=== PATIENT | male | born 1980 | race Caucasian/White ===

== ENCOUNTER → 2016-08-02 | Outpatient (CLI) | payer BC ==
[~2016-08-02] MED LIST: AZIT250T PO; INSPMPHMLG; OSEL75CA12 PO
[2016-08-02 09:44] LABS: BLOOD UREA NITROGEN 15 mg/dl (7-18); BUN/CREATININE RATIO 12.4 (10-20); CALCIUM 9.7 mg/dl (8.5-10.1); CARBON DIOXIDE 29 mmol/L (21-32); CHLORIDE 100 mmol/L (98-107); GLUCOSE 152 mg/dl (70-99); POTASSIUM 4.6 mmol/L (3.5-5.1); SODIUM 139 mmol/L (136-145)
[2016-08-02 09:47] LABS: CHOLESTEROL 165 mg/dl (0-200); CHOLESTEROL/HDL RATIO 2.5; HDL CHOLESTEROL 67 mg/dl; LDL CHOLESTEROL CALCULATED 77 mg/dl; TRIGLYCERIDES 107 mg/dl (0-150); VERY LOW DENSITY LIPOPROT CALC 21 mg/dl
[2016-08-02 09:58] LABS: ESTIMATED AVERAGE GLUCOSE 140 mg/dl; HA1C FLAG Normal (Normal)
[2016-08-02 10:17] LABS: RATIO 9.5 mcg/mg (0-30.0)
== END | disposition home or self-care (01) ==
LOC: C.LAB 07:07
PROVIDERS: ATTEND Internal Medicine Endocrinology, Diabetes & Metabolism
DX: E10.42 Type 1 diabetes mellitus with diabetic polyneuropathy (principal)

== ENCOUNTER → 2016-11-29 | Outpatient (CLI) | payer BC ==
[2016-11-29 09:52] LABS: BLOOD UREA NITROGEN 17 mg/dl (7-18); BUN/CREATININE RATIO 17.3 (10-20); CARBON DIOXIDE 29 mmol/L (21-32); CHLORIDE 105 mmol/L (98-107); GLUCOSE 130 mg/dl (70-99); POTASSIUM 4.4 mmol/L (3.5-5.1); SODIUM 141 mmol/L (136-145)
[2016-11-29 09:59] LABS: CALCIUM 9.1 mg/dl (8.5-10.1)
[2016-11-29 10:27] LABS: ESTIMATED AVERAGE GLUCOSE 148 mg/dl; HA1C FLAG Normal (Normal)
== END | disposition home or self-care (01) ==
LOC: C.LAB 06:56
PROVIDERS: ATTEND Physician Assistant
DX: E10.22 Type 1 diabetes mellitus with diabetic chronic kidney disease (principal); N18.2 Chronic kidney disease, stage 2 (mild); E10.42 Type 1 diabetes mellitus with diabetic polyneuropathy; Z96.41 Presence of insulin pump (external) (internal); I10 Essential (primary) hypertension

== ENCOUNTER → 2017-04-13 | Outpatient (CLI) | payer BC ==
[2017-04-13 10:02] LABS: BLOOD UREA NITROGEN 18 mg/dl (7-18); BUN/CREATININE RATIO 16.5 (10-20); CALCIUM 9.8 mg/dl (8.5-10.1); CARBON DIOXIDE 26 mmol/L (21-32); CHLORIDE 103 mmol/L (98-107); GLUCOSE 129 mg/dl (70-99); POTASSIUM 4.4 mmol/L (3.5-5.1); SODIUM 136 mmol/L (136-145)
== END | disposition home or self-care (01) ==
LOC: C.LAB 07:03
PROVIDERS: ATTEND Physician Assistant
DX: E10.42 Type 1 diabetes mellitus with diabetic polyneuropathy (principal)

== ENCOUNTER → 2017-08-29 | Outpatient (CLI) | payer OTHER ==
[2017-08-29 09:53] LABS: BLOOD UREA NITROGEN 22 mg/dl (7-18); CALCIUM 9.8 mg/dl (8.5-10.1); CARBON DIOXIDE 31 mmol/L (21-32); CREATININE 0.99 mg/dl (0.60-1.40); GLUCOSE 145 mg/dl (70-99); POTASSIUM 4.4 mmol/L (3.5-5.1); SODIUM 136 mmol/L (136-145)
[2017-08-29 09:57] LABS: HEMOGLOBIN A1C 6.7 % (4.5-5.6)
== END | disposition home or self-care (01) ==
LOC: C.LAB 07:08
PROVIDERS: ATTEND Internal Medicine Endocrinology, Diabetes & Metabolism
DX: E10.42 Type 1 diabetes mellitus with diabetic polyneuropathy (principal)

== ENCOUNTER → 2017-11-16 | Outpatient (CLI) | payer OTHER ==
[2017-11-16 09:47] LABS: BLOOD UREA NITROGEN 19 mg/dl (7-18); CALCIUM 9.1 mg/dl (8.5-10.1); CARBON DIOXIDE 26 mmol/L (21-32); CREATININE 1.15 mg/dl (0.60-1.40); GLUCOSE 167 mg/dl (70-99); POTASSIUM 4.2 mmol/L (3.5-5.1); SODIUM 138 mmol/L (136-145)
[2017-11-16 09:50] LABS: CHOLESTEROL 160 mg/dl (0-200); LDL CHOLESTEROL CALCULATED 77 mg/dl
[2017-11-16 10:01] LABS: HEMOGLOBIN A1C 6.7 % (4.5-5.6)
== END | disposition home or self-care (01) ==
LOC: C.LAB 07:08
PROVIDERS: ATTEND Physician Assistant
DX: E10.3299 Type 1 diabetes mellitus with mild nonproliferative diabetic retinopathy without macular edema, unspecified eye (principal); Z96.41 Presence of insulin pump (external) (internal); I10 Essential (primary) hypertension

== ENCOUNTER 2023-02-07 01:35 | Inpatient (IN) ==
[2023-02-07] MEDS ORDERED: ONDANSETRON INJ 2 MG/ML 2 ML VIAL IV STA (01:51)
[2023-02-07] MEDS ORDERED: KETOROLAC TROMETHAMINE 15 MG/ML VIAL IV STA (01:51)
[2023-02-07] MEDS ORDERED: SODIUM CHLORIDE 0.9% 1000ML 1,000 ML IV STA (01:51)
--- NOTE | 2023-02-07 01:57 | Emergency Department Note ---
History of Present Illness General Chief complaint: Kidney Stone Stated complaint: KIDNEY STONE Time Seen by Provider: 02/07/23 01:44 History of Present Illness Maximum Pain Intensity: 6 This 42-year-old male presents the ER complaining of right flank pain with a history of kidney stones. He has not required lithotripsy or stent placement in the past. Blood sugars have been stable. Patient denies chest pain, dyspnea, vomiting, diarrhea, trauma to the area. Home Medications Medication Instructions Recorded Confirmed Type aspirin 81 mg tablet,delayed 81 mg PO QPM 09/04/18 02/07/23 History release lisinopril 40 mg tablet 40 mg PO QPM 01/14/19 02/07/23 History insulin lispro 100 unit/mL See Rx Instructions .Route .COMPLEX 02/07/23 02/07/23 History subcutaneous solution (Humalog U-100 Insulin) latanoprost 0.005 % eye drops 1 drp ophthalmic (eye) UD 02/07/23 02/07/23 History Allergies Allergy/AdvReac Type Severity Reaction Status Date / Time No Known Allergies Allergy Verified 12/01/22 10:19 No Known Drug Allergies Allergy Uncoded 12/01/22 10:19 Past Med/Surg History Medical History Cataract, bilateral Diabetes mellitus type 1 INSULIN PUMP Diabetic retinopathy Hypertension Situational anxiety Surgical History History of carpal tunnel surgery of right wrist History of cataract surgery RT History of detached retina repair LEFT EYE History of eye surgery SCAR TISSURE REMOVED FROM RIGHT EYE Family History Father Prostate cancer Mother Vitamin B 12 deficiency Thyroid disorder Social History Smoking Status: Never smoker Second Hand Exposure: No; Do You Dip or Chew Tobacco: No; Hx Alcohol Use: No Hx Substance Use: Yes Preferred Language: Hungarian Communication Ability: Effective 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 Beliefs That Will Affect Care: None marital status: Current Living Situation: Family Feels Safe at Home: Yes Assistive Devices: Glasses Review of Systems A total of 10 systems reviewed and were otherwise negative Physical Exam Vital Signs Vital Signs - 24 hr 02/07/23 01:36 02/07/23 02:02 02/07/23 02:10 Temperature 36.9 C Temperature Source Oral Pulse Rate 86 79 Pulse Rate [Finger] 78 Pulse Rhythm Regular Pulse Rhythm [Finger] Regular Pulse Strength Normal Pulse Strength [Finger] Normal Respiratory Rate 18 18 Respiratory Effort / Characteristics Non-Labored Spontaneous Non-Labored Spontaneous Respiratory Depth Normal Normal Respiratory Pattern Regular Regular Blood Pressure 149/95 H Blood Pressure [Left Arm] 166/90 H Blood Pressure Mean 113 Blood Pressure Mean [Left Arm] 115 Blood Pressure Position Sitting Pulse Oximetry 97 96 Oxygen Delivery Method Room Air Room Air Sepsis Recent Fever Within 48 Hours No Sepsis New/Unexplained Change in Mental Status No Sepsis Action Taken by Nursing No Action Required 02/07/23 02:10 Temperature Temperature Source Pulse Rate Pulse Rate [Finger] Pulse Rhythm Pulse Rhythm [Finger] Pulse Strength Pulse Strength [Finger] Respiratory Rate Respiratory Effort / Characteristics Respiratory Depth Respiratory Pattern Blood Pressure Blood Pressure [Left Arm] Blood Pressure Mean Blood Pressure Mean [Left Arm] Blood Pressure Position Pulse Oximetry Oxygen Delivery Method Room Air Sepsis Recent Fever Within 48 Hours Sepsis New/Unexplained Change in Mental Status Sepsis Action Taken by Nursing VITALS: Vitals are noted on the nurse's note and reviewed by myself. Vital signs stable. GENERAL: Pleasant patient, in no acute distress, nondiaphoretic, well-developed well-nourished. SKIN: The skin was without rashes, erythema, edema, or bruising. There is no tenting of the skin. Capillary reflex less than 2 seconds. HEAD: Normocephalic atraumatic. EARS: External auditory canals clear, EYES: Pupils equal round and reactive to light and accommodation. Conjunctivae without injection, sclerae without icterus. Extraocular movements intact. NOSE: Patent, turbinates without inflammation or discharge. MOUTH: Mucous membranes moist. Pharynx without erythema or exudate. Uvula midline. Airway patent. Tongue does not deviate. NECK: Supple without nuchal rigidity. No lymphadenopathy. No thyromegaly. Cervical spine is nontender. No JVD. HEART: Regular rate and rhythm LUNGS: Clear to auscultation bilaterally without wheezes, rales or rhonchi. No retractions or accessory muscle use. ABDOMEN: Positive bowel sounds x 4. Normal tympanic percussion. Soft, nontender, without masses or organomegaly. Blanco sign negative. No guarding or rebound tenderness. No CVA tenderness MUSCULOSKELETAL: No muscle atrophy, erythema, or edema noted. NEURO: Patient was alert and oriented to person place and time. Normal sensation to light and sharp touch. No focal neurological deficits. Course Administered Medications Morphine Sulfate (Morphine Sulfate 4 Mg/Ml 1 Ml Carp\Vial) 4 mg IV Q15M PRN PRN Reason: Pain Stop: 02/21/23 01:50 Last Admin: 02/07/23 04:25 Dose: 4 mg Documented By: Admin: 02/07/23 02:50 Dose: 4 mg Documented By: Admin: 02/07/23 02:12 Dose: 4 mg Documented By: MACKENZIE Discontinued Medications Sodium Chloride (Nss 1000ml) 1,000 mls @ 999 mls/hr IV .Q1H1M STA Stop: 02/07/23 02:51 Last Admin: 02/07/23 02:12 Dose: 999 mls/hr Documented By: MACKENZIE Ketorolac Tromethamine (Ketorolac Tromethamine 15 Mg/Ml Vial) 10 mg IV NOW STA Stop: 02/07/23 01:52 Last Admin: 02/07/23 02:13 Dose: 10 mg Documented By: MACKENZIE Ondansetron HCl (Ondansetron Inj 2 Mg/Ml 2 Ml Vial) 4 mg IV NOW STA Stop: 02/07/23 01:52 Last Admin: 02/07/23 02:12 Dose: 4 mg Documented By: MACKENZIE Tamsulosin HCl (Tamsulosin Hcl 0.4 Mg Cap) 0.4 mg PO NOW ONE Stop: 02/07/23 02:33 Last Admin: 02/07/23 02:45 Dose: 0.4 mg Documented By: MACKENZIE Medical Decision Making Medical Records Attestation: I reviewed the patient's medical records. Home Medications Current Medication List: was personally reviewed by me Laboratory Data Attestation: I reviewed the patient's lab results. 02/07/23 02:14 02/07/23 02:14 Lab Results 02/07/23 02/07/23 02/07/23 Range/Units 02:14 02:14 02:14 WBC 5.59 (4.8-10.8) K/ul RBC 4.53 L (4.70-6.10) M/uL Hgb 14.2 (14.0-18.0) g/dl Hct 40.2 L (42.0-52.0) % MCV 88.7 (80.0-100.0) fL MCH 31.3 (25.0-34.0) pg MCHC 35.3 (32.0-36.0) g/dL RDW Std Deviation 40.7 (36.4-46.3) fL RDW Coeff of Les 12.5 (11.5-14.5) % Plt Count 168 (130-400) K/uL MPV 12.6 H (9.4-12.4) fL Immature Gran % (Auto) 0.2 % Neut % (Auto) 60.8 % Lymph % (Auto) 22.7 % [place] % (Auto) 13.1 % Eos % (Auto) 2.5 % Baso % (Auto) 0.7 % Neut # (Auto) 3.40 (1.40-6.50) K/uL Lymph # (Auto) 1.27 (1.2-3.4) K/uL [place] # (Auto) 0.73 H (0.11-0.59) K/uL Eos # (Auto) 0.14 (0-0.50) K/uL Baso # (Auto) 0.04 (0-0.2) K/uL Immature Gran # (Auto) 0.01 (0.01-0.20) K/uL Sodium 138 (136-145) mmol/L Potassium 4.0 (3.5-5.1) mmol/L Chloride 106 (98-107) mmol/L Carbon Dioxide 25 (21-32) mmol/L Anion Gap 7 (3-11) BUN 14 (6-23) mg/dl Creatinine 1.46 H (0.6-1.4) mg/dl Est Cr Clr Drug Dosing 77.1 ml/min Est GFR ( Amer) 67.8 ml/min Est GFR (Non-Af Amer) 58.5 ml/min BUN/Creatinine Ratio 9.6 L (10-20) Glucose 213 H (70-99(Fasting)) mg/dl Calcium 9.2 (8.6-10.3) mg/dl Total Bilirubin 0.6 (0.2-1.0) mg/dl AST 14 (13-39) U/L ALT 8 (7-52) U/L Alkaline Phosphatase 79 (34-104) U/L Total Protein 6.8 (6.0-8.3) gm/dl Albumin 4.1 (3.4-5.0) gm/dl Globulin 2.7 (2.5-4.0) gm/dl Albumin/Globulin Ratio 1.5 (0.9-2) Lipase 6 L (11-82) U/L Urine Color Yellow Urine Appearance Clear (Clear) Urine pH 5.5 (4.5-7.5) Ur Specific [place] 1.023 (1.000-1.030) Urine Protein Negative (Negative) Urine Glucose (UA) 2+ H (Negative) Urine Ketones Trace H (Negative) Urine Blood 3+ H (Negative) Urine Nitrite Negative (Negative) Urine Bilirubin Negative (Negative) Urine Urobilinogen Negative (Negative) Ur Leukocyte Esterase Negative (Negative) Urine WBC (Auto) 1-5 (0-5) /hpf Urine RBC (Auto) >30 H (0-4) /hpf U Hyaline Cast (Auto) 5-10 H (0-5) /lpf U Epithel Cells (Auto) 5-10 H (0-5) /lpf Urine Bacteria (Auto) Negative (Negative) Imaging Data Attestation: I personally reviewed and interpreted this imaging study as follows: Radiologist's Impression: Abdomen/Pelvis CT 02/07/23 01:51 Exam(s): CT ABDOMEN + PELVIS Without Contrast EXAM: CT Abdomen and Pelvis Without Intravenous Contrast CLINICAL HISTORY: Reason for exam: right flank pain. TECHNIQUE: Axial computed tomography images of the abdomen and pelvis without intravenous contrast. CTDI is 28.14 mGy and DLP is 1591.29 mGy-cm. Automated exposure control was utilized for the study. A dose lowering technique was utilized adhering to the principles of ALARA. COMPARISON: 01/14/2019. FINDINGS: Lung bases: Mild bilateral lower lobe atelectasis. Heart: Unremarkable. No significant pericardial effusion. Normal cardiac size. ABDOMEN: Liver: Unremarkable. Gallbladder and bile ducts: Slightly over distended gallbladder otherwise unremarkable gallbladder and biliary system. No calcified stones. No ductal dilation. Pancreas: Unremarkable. No ductal dilation. Spleen: Unremarkable. No splenomegaly. Adrenals: Unremarkable. No mass. Kidneys and ureters: Tiny stones in the lower pole of the right kidney measuring 2.3 mm. Mild to moderate right-sided hydronephrosis and hydroureter due to a distal right ureteral stone measuring 6.7 mm. This is seen approximately 4-5 cm above the UV junction. Unremarkable left kidney with no hydronephrosis and intrarenal stones. Stomach and bowel: Abundant fecal debris within the colon which may indicate mild constipation. No obstruction. No mucosal thickening. PELVIS: Appendix: No findings to suggest acute appendicitis. Bladder: Urinary bladder is incompletely distended, otherwise unremarkable. No stones. Reproductive: Unremarkable as visualized. ABDOMEN and PELVIS: Intraperitoneal space: Unremarkable. No free air. No significant fluid collection. Bones/joints: No acute fracture. No dislocation. Soft tissues: Unremarkable. Vasculature: Unremarkable. No abdominal aortic aneurysm. Lymph nodes: Unremarkable. No enlarged lymph nodes. IMPRESSION: 1. Mild to moderate right-sided hydronephrosis due to a distal right ureteral stone measuring 6.7 mm. 2.3 mm stone within the lower pole of the right kidney. Remainder of abdominal viscera unremarkable. 2. Possible constipation. No bowel obstruction or focal inflammatory process throughout the gastrointestinal tract. Electronically signed by: Dayanna Estrada MD 02/07/23 04:34 AM [facility] Narrative Prior records/ancillary studies reviewed. Triage Nursing notes reviewed. Additional history obtained from the family. The patient's history was concerning for flank pain. Differential diagnosis: Etiologies such as renal colic, appendicitis, diverticulitis, mesenteric ischemia, aortic pathology, infections, inflammatory bowel disease, PUD, biliary pathology, UTI, as well as others were entertained. Physical examination findings: As above. ER treatment provided: Morphine Toradol Zofran IV fluids were ordered On reassessment the patient felt better. Diagnostic interpretation by me: The labs Independently Interpreted by myself revealed no worrisome leukocytosis. Urinalysis revealed There was no sign of UTI. Imaging studies: CT of the abdomen pelvis concerning for right ureteral stone with hydronephrosis per my independent interpretation. Radiology report was reviewed as above. Consultation: A consultation was placed with the hospitalist. The case was discussed and diagnostics were reviewed. The patient was evaluated in the ER for further treatment. It appears that the patient has isolated renal colic from a right sided stone. patient received multiple rounds of pain meds. He was still moderate amount of pain. He was reassessed multiple times. Labs and diagnostics were independent of the by myself. Medicine is consulted and the case is discussed. He will be admitted to the medical team for further evaluation and treatment. No signs of UTI. Afebrile and nontoxic. By the evaluation outlined above emergent etiologies such as appendicitis, diverticulitis, mesenteric ischemia, aortic pathology, infections, inflammatory bowel disease, PUD, biliary pathology, UTI, as well as others were deemed relati vely unlikely. The pt informed about the findings as listed above. All questions were answered and pleased with the treatment. The chart was completed utilizing [email or web address] Speech voice recognition software. Grammatical errors, random word insertions, pronoun errors, and incomplete sentences are an occassional consequence of this system due to software limitations, ambient noise, and hardware issues. Any formal questions or concerns about the content, text, or information contained within the body of this dictation should be directly addressed to the physician regulatory assistant for clarification. Impression & Plan Renal colic on right side, Ureterolithiasis Discharge Plan Visit Data Chief Complaint: Kidney Stone Stated Complaint: KIDNEY STONE ED Provider: Mary Lucero ED Midlevel Provider: Vani Marcial Discharge Problem: Renal colic on right side, Ureterolithiasis Patient Disposition: Being Evaluated by Hospitalist Condition: Good Forms Stand Alone Forms: My [employer] Prescriptions Prescriptions: No Action lisinopril 40 mg tablet 40 mg PO QPM aspirin 81 mg Tablet,Delayed Release (Dr/Ec) 81 mg PO QPM insulin lispro [Humalog U-100 Insulin] 100 unit/mL solution See Rx Instructions .ROUTE .COMPLEX Rx Instructions: up to 100 units daily via insulin pump latanoprost 0.005 % drops 1 drp ophthalmic (eye) UD Referrals Referrals: Olivia Connor CRNP [Primary Care Provider] -
[2023-02-07] MEDS: MoRPHine SULFATE 4 MG/ML 1 ML CARP\\VIAL IV PRN ×3 (02:12→04:25)
[2023-02-07 02:27] LABS: Appearance Urine Clear (Clear); Bacteria Urine Automated Negative (Negative); Bilirubin Urine Negative (Negative); Blood Urine 3+ (Negative); Color Urine Yellow; Glucose Urine UA 2+ (Negative); Ketones Urine Trace (Negative); Leukocyte Esterase Urine Negative (Negative); Nitrite Urine Negative (Negative); Protein Urine Negative (Negative); RBC Urine Automated >30 /hpf (0-4); Specific Gravity Urine 1.023 (1.000-1.030); Urobilinogen Urine Negative (Negative); pH Urine 5.5 (4.5-7.5)
[2023-02-07] MEDS ORDERED: TAMSULOSIN HCL 0.4 MG CAP PO ONE (02:32)
[2023-02-07 02:35] LABS: Basophils # (auto) 0.04 K/uL (0-0.2); Basophils % (auto) 0.7 %; Eosinophils # (auto) 0.14 K/uL (0-0.50); Eosinophils % (auto) 2.5 %; Hematocrit (blood only) 40.2 % (42.0-52.0); Hemoglobin 14.2 g/dl (14.0-18.0); Immature Granulocytes # (auto) 0.01 K/uL (0.01-0.20); Immature Granulocytes % (auto) 0.2 %; Lymphocytes # (auto) 1.27 K/uL (1.2-3.4); Lymphocytes % (auto) 22.7 %; Mean Corpuscular Hemoglobin 31.3 pg (25.0-34.0); Mean Corpuscular Hgb Conc 35.3 g/dL (32.0-36.0); Mean Corpuscular Volume 88.7 fL (80.0-100.0); Mean Platelet Volume 12.6 fL (9.4-12.4); Monocytes # (auto) 0.73 K/uL (0.11-0.59); Monocytes % (auto) 13.1 %; Neutrophils % (auto) 60.8 %; Platelet Count 168 K/uL (130-400); RDW Coefficient of Variation 12.5 % (11.5-14.5); RDW Standard Deviation 40.7 fL (36.4-46.3); Red Blood Count 4.53 M/uL (4.70-6.10); White Blood Count 5.59 K/ul (4.8-10.8)
[2023-02-07 02:47] LABS: Albumin Globulin Ratio 1.5 (0.9-2); Albumin Level 4.1 gm/dl (3.4-5.0); BUN Creatinine Ratio 9.6 (10-20); Bilirubin,Total 0.6 mg/dl (0.2-1.0); Calcium 9.2 mg/dl (8.6-10.3); Creatinine Clr Calc Pharmacy 77.1 ml/min; Est GFR (African American) 67.8 ml/min; Est GFR (Non-African American) 58.5 ml/min; Globulin 2.7 gm/dl (2.5-4.0); Total Protein 6.8 gm/dl (6.0-8.3)
--- NOTE | 2023-02-07 04:35 | CT Scan Report ---
Exam(s): CT ABDOMEN + PELVIS Without Contrast EXAM: CT Abdomen and Pelvis Without Intravenous Contrast CLINICAL HISTORY: Reason for exam: right flank pain. TECHNIQUE: Axial computed tomography images of the abdomen and pelvis without intravenous contrast. CTDI is 28.14 mGy and DLP is 1591.29 mGy-cm. Automated exposure control was utilized for the study. A dose lowering technique was utilized adhering to the principles of ALARA. COMPARISON: 01/14/2019. FINDINGS: Lung bases: Mild bilateral lower lobe atelectasis. Heart: Unremarkable. No significant pericardial effusion. Normal cardiac size. ABDOMEN: Liver: Unremarkable. Gallbladder and bile ducts: Slightly over distended gallbladder otherwise unremarkable gallbladder and biliary system. No calcified stones. No ductal dilation. Pancreas: Unremarkable. No ductal dilation. Spleen: Unremarkable. No splenomegaly. Adrenals: Unremarkable. No mass. Kidneys and ureters: Tiny stones in the lower pole of the right kidney measuring 2.3 mm. Mild to moderate right-sided hydronephrosis and hydroureter due to a distal right ureteral stone measuring 6.7 mm. This is seen approximately 4-5 cm above the UV junction. Unremarkable left kidney with no hydronephrosis and intrarenal stones. Stomach and bowel: Abundant fecal debris within the colon which may indicate mild constipation. No obstruction. No mucosal thickening. PELVIS: Appendix: No findings to suggest acute appendicitis. Bladder: Urinary bladder is incompletely distended, otherwise unremarkable. No stones. Reproductive: Unremarkable as visualized. ABDOMEN and PELVIS: Intraperitoneal space: Unremarkable. No free air. No significant fluid collection. Bones/joints: No acute fracture. No dislocation. Soft tissues: Unremarkable. Vasculature: Unremarkable. No abdominal aortic aneurysm. Lymph nodes: Unremarkable. No enlarged lymph nodes. IMPRESSION: 1. Mild to moderate right-sided hydronephrosis due to a distal right ureteral stone measuring 6.7 mm. 2.3 mm stone within the lower pole of the right kidney. Remainder of abdominal viscera unremarkable. 2. Possible constipation. No bowel obstruction or focal inflammatory process throughout the gastrointestinal tract. Electronically signed by: Dayanna Estrada MD 02/07/23 04:34 AM
--- NOTE | 2023-02-07 05:08 | History & Physical Report ---
Date of Service February 07, 2023 Assessment & Plan (1) Ureterolithiasis: Plan: 42 yo male with PMHx HTN and DM1 presents with R flank pain. #Ureteral stone -presented with 1 wk waxing and waning R flank/back pain. No leukocytosis. Afebrile. UA with blood but no infection. He does have history have stones that were passed without intervention, previous sizes unknown. -CT A/P: Mild to moderate right-sided hydronephrosis due to a distal right ureteral stone measuring 6.7 mm. 2.3 mm stone within the lower pole of the right kidney. -received 1L NSS in ED. Cont. NSS @ 125. -tamsulosin daily, pain control, zofran -urology consulted given size of stone #HUMBLE -Cr 1.46 on admission, baseline wnl. Due to hydronephrosis as above. -hold lisinopril #HTN -hold lisinopril as above #DM1 -pt with continuous insulin pump. ACHS BSG checks. Hypoglycemic protocol in place. DVT ppx: SCDs; no chemical in case for intervention FEN/GI: NPO Code Status: full Dispo: med surg (2) Renal colic on right side: (3) Hypertension: (4) Diabetes mellitus type I: History of Present Illness Chief Complaint: R flank pain Primary Care Provider: THAD Gagnon 42 yo male with PMHx HTN and DM1 presents with R flank pain. 1 wk ago began having waxing and waning R sided flank pain. Pain located at low R back and wrap s around to groin. Associated nausea and chills. Denies fever, headache, sob, chest pain, abd pain, vomiting, diarrhea, dysuria, hematuria. He has had 2-3 kidney stones in the past size unknown but he has been able to pass all on his own without intervention. Allergies Allergy/AdvReac Type Severity Reaction Status Date / Time No Known Allergies Allergy Verified 12/01/22 10:19 Home Medications Medication Instructions Recorded Confirmed Type aspirin 81 mg tablet,delayed 81 mg PO QPM 09/04/18 02/07/23 History release insulin lispro 100 unit/mL See Rx Instructions .Route .COMPLEX 02/07/23 02/07/23 History subcutaneous solution (Humalog U-100 Insulin) latanoprost 0.005 % eye drops 1 drp ophthalmic (eye) UD 02/07/23 02/07/23 History acetaminophen 325 mg capsule 325 mg PO QID 2 weeks #56 caps 02/08/23 Rx oxycodone 5 mg tablet 5 mg PO Q8H PRN severe pain (scale 02/08/23 Rx score 7-10) #14 tabs tamsulosin 0.4 mg capsule 0.4 mg PO QAM #15 caps 02/08/23 Rx Past Med/Surg History Medical History Cataract, bilateral Diabetes mellitus type 1 INSULIN PUMP Diabetic retinopathy Hypertension Situational anxiety Surgical History History of carpal tunnel surgery of right wrist History of cataract surgery RT History of detached retina repair LEFT EYE History of eye surgery SCAR TISSURE REMOVED FROM RIGHT EYE Family History Father Prostate cancer Mother Vitamin B 12 deficiency Thyroid disorder Social History Smoking Status: Never smoker Second Hand Exposure: No; Do You Dip or Chew Tobacco: No; Hx Alcohol Use: No Hx Substance Use: No Preferred Language: Stateless Communication Ability: Effective 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 AOx3. Vitals as above. HEENT: No scleral injection or discharge. Moist mucous membranes. Neck: Supple without lymphadenopathy or thyromegaly. Trachea midline. Lungs: Clear to auscultation bilaterally with good effort. No wheezes/rales/rhonchi. Cardiac: Regular rate and rhythm.No murmurs.No extremity edema. 2+ distal peripheral pulses. Abdomen: Bowel sounds present. Soft, nontender, and nondistended.No guarding. No hepatosplenomegaly. No CVA tenderness. Nontender low back and groin. MSK: No cyanosis or clubbing. Extremities motor strength 5/5. Skin: No rashes, warm, dry. Neurologic: no focal deficits Results & Data Results & Data Vital Signs (Past 12 Hours) Vital Signs Temp Pulse Pulse Resp BP BP Pulse Ox 02/07/23 02:10 02/07/23 02:10 78 18 166/90 H 96 02/07/23 02:02 79 02/07/23 01:36 36.9 C 86 18 149/95 H 97 O2 Del Method 02/07/23 02:10 Room Air 02/07/23 02:10 Room Air 02/07/23 02:02 02/07/23 01:36 Room Air Laboratory Results Laboratory Results WBC 5.59 K/ul (4.8-10.8) 02/07/23 02:14 RBC 4.53 M/uL (4.70-6.10) L 02/07/23 02:14 Hgb 14.2 g/dl (14.0-18.0) 02/07/23 02:14 Hct 40.2 % (42.0-52.0) L 02/07/23 02:14 MCV 88.7 fL (80.0-100.0) 02/07/23 02:14 MCH 31.3 pg (25.0-34.0) 02/07/23 02:14 MCHC 35.3 g/dL (32.0-36.0) 02/07/23 02:14 RDW Std Deviation 40.7 fL (36.4-46.3) 02/07/23 02:14 RDW Coeff of Les 12.5 % (11.5-14.5) 02/07/23 02:14 Plt Count 168 K/uL (130-400) 02/07/23 02:14 MPV 12.6 fL (9.4-12.4) H 02/07/23 02:14 Immature Gran % (Auto) 0.2 % 02/07/23 02:14 Neut % (Auto) 60.8 % 02/07/23 02:14 Lymph % (Auto) 22.7 % 02/07/23 02:14 [place] % (Auto) 13.1 % 02/07/23 02:14 Eos % (Auto) 2.5 % 02/07/23 02:14 Baso % (Auto) 0.7 % 02/07/23 02:14 Neut # (Auto) 3.40 K/uL (1.40-6.50) 02/07/23 02:14 Lymph # (Auto) 1.27 K/uL (1.2-3.4) 02/07/23 02:14 [place] # (Auto) 0.73 K/uL (0.11-0.59) H 02/07/23 02:14 Eos # (Auto) 0.14 K/uL (0-0.50) 02/07/23 02:14 Baso # (Auto) 0.04 K/uL (0-0.2) 02/07/23 02:14 Immature Gran # (Auto) 0.01 K/uL (0.01-0.20) 02/07/23 02:14 Sodium 138 mmol/L (136-145) 02/07/23 02:14 Potassium 4.0 mmol/L (3.5-5.1) 02/07/23 02:14 Chloride 106 mmol/L (98-107) 02/07/23 02:14 Carbon Dioxide 25 mmol/L (21-32) 02/07/23 02:14 Anion Gap 7 (3-11) 02/07/23 02:14 BUN 14 mg/dl (6-23) 02/07/23 02:14 Creatinine 1.46 mg/dl (0.6-1.4) H 02/07/23 02:14 Est Cr Clr Drug Dosing 77.1 ml/min 02/07/23 02:14 Est GFR ( Amer) 67.8 ml/min 02/07/23 02:14 Est GFR (Non-Af Amer) 58.5 ml/min 02/07/23 02:14 BUN/Creatinine Ratio 9.6 (10-20) L 02/07/23 02:14 Glucose 213 mg/dl (70-99(Fasting)) H 02/07/23 02:14 Calcium 9.2 mg/dl (8.6-10.3) 02/07/23 02:14 Total Bilirubin 0.6 mg/dl (0.2-1.0) 02/07/23 02:14 AST 14 U/L (13-39) 02/07/23 02:14 ALT 8 U/L (7-52) 02/07/23 02:14 Alkaline Phosphatase 79 U/L (34-104) 02/07/23 02:14 Total Protein 6.8 gm/dl (6.0-8.3) 02/07/23 02:14 Albumin 4.1 gm/dl (3.4-5.0) 02/07/23 02:14 Globulin 2.7 gm/dl (2.5-4.0) 02/07/23 02:14 Albumin/Globulin Ratio 1.5 (0.9-2) 02/07/23 02:14 Lipase 6 U/L (11-82) L 02/07/23 02:14 Urine Color Yellow 02/07/23 02:14 Urine Appearance Clear (Clear) 02/07/23 02:14 Urine pH 5.5 (4.5-7.5) 02/07/23 02:14 Ur Specific [place] 1.023 (1.000-1.030) 02/07/23 02:14 Urine Protein Negative (Negative) 02/07/23 02:14 Urine Glucose (UA) 2+ (Negative) H 02/07/23 02:14 Urine Ketones Trace (Negative) H 02/07/23 02:14 Urine Blood 3+ (Negative) H 02/07/23 02:14 Urine Nitrite Negative (Negative) 02/07/23 02:14 Urine Bilirubin Negative (Negative) 02/07/23 02:14 Urine Urobilinogen Negative (Negative) 02/07/23 02:14 Ur Leukocyte Esterase Negative (Negative) 02/07/23 02:14 Urine WBC (Auto) 1-5 /hpf (0-5) 02/07/23 02:14 Urine RBC (Auto) >30 /hpf (0-4) H 02/07/23 02:14 U Hyaline Cast (Auto) 5-10 /lpf (0-5) H 02/07/23 02:14 U Epithel Cells (Auto) 5-10 /lpf (0-5) H 02/07/23 02:14 Urine Bacteria (Auto) Negative (Negative) 02/07/23 02:14 Impressions Abdomen/Pelvis CT 02/07/23 01:51 Exam(s): CT ABDOMEN + PELVIS Without Contrast EXAM: CT Abdomen and Pelvis Without Intravenous Contrast CLINICAL HISTORY: Reason for exam: right flank pain. TECHNIQUE: Axial computed tomography images of the abdomen and pelvis without intravenous contrast. CTDI is 28.14 mGy and DLP is 1591.29 mGy-cm. Automated exposure control was utilized for the study. A dose lowering technique was utilized adhering to the principles of ALARA. COMPARISON: 01/14/2019. FINDINGS: Lung bases: Mild bilateral lower lobe atelectasis. Heart: Unremarkable. No significant pericardial effusion. Normal cardiac size. ABDOMEN: Liver: Unremarkable. Gallbladder and bile ducts: Slightly over distended gallbladder otherwise unremarkable gallbladder and biliary system. No calcified stones. No ductal dilation. Pancreas: Unremarkable. No ductal dilation. Spleen: Unremarkable. No splenomegaly. Adrenals: Unremarkable. No mass. Kidneys and ureters: Tiny stones in the lower pole of the right kidney measuring 2.3 mm. Mild to moderate right-sided hydronephrosis and hydroureter due to a distal right ureteral stone measuring 6.7 mm. This is seen approximately 4-5 cm above the UV junction. Unremarkable left kidney with no hydronephrosis and intrarenal stones. Stomach and bowel: Abundant fecal debris within the colon which may indicate mild constipation. No obstruction. No mucosal thickening. PELVIS: Appendix: No findings to suggest acute appendicitis. Bladder: Urinary bladder is incompletely distended, otherwise unremarkable. No stones. Reproductive: Unremarkable as visualized. ABDOMEN and PELVIS: Intraperitoneal space: Unremarkable. No free air. No significant fluid collection. Bones/joints: No acute fracture. No dislocation. Soft tissues: Unremarkable. Vasculature: Unremarkable. No abdominal aortic aneurysm. Lymph nodes: Unremarkable. No enlarged lymph nodes. IMPRESSION: 1. Mild to moderate right-sided hydronephrosis due to a distal right ureteral stone measuring 6.7 mm. 2.3 mm stone within the lower pole of the right kidney. Remainder of abdominal viscera unremarkable. 2. Possible constipation. No bowel obstruction or focal inflammatory process throughout the gastrointestinal tract. Electronically signed by: Dayanna Estrada MD 02/07/23 04:34 AM Supervising Physician Co-Signing Physician Notes Attending addendum: I have physically seen this patient, have supervised the medical residents act ivities, and agree with the H&P unless as otherwise noted. Assessment and Plan: Distal right ureteral stone 6.7 mm/mild to moderate right hydroureteronephrosis- N.p.o. Follow urine culture and sensitivity Ceftriaxone 2 g IV daily Tamsulosin 0.4 mg at bedtime Consult urology Acute kidney injury- Creatinine 1.46 on admission with baseline 0.91- IV fluids as noted Hold lisinopril Treating ureteral blockage as noted Follow laboratory serially Hypertension- Holding lisinopril as noted Hydralazine 10 mg IV every 4 hours as needed systolic greater than 160 Remaining orders and notations as noted Resident Activity Tracking Resident Involvement: Resident Care Provided Care Provided: Adult Hospital Medicine
--- NOTE | 2023-02-07 05:36 | Urology Consultation ---
Date of Consultation February 07, 2023 Assessment & Plan (1) Renal colic on right side: The patient is being admitted on the hospitalist service. We recommend proceeding as follows: Provide analgesics Provide antiemetics Follow serial labs Provide IV fluid for hydration Avoid nephrotoxic The patient has received a dose of Flomax in the emergency department. This should continue to help facilitate kidney stone expulsive therapy. Would recommend keeping the patient n.p.o. for the present time. The patient will be evaluated by our [facility]ne[facility] urology team to determine if cystoscopic intervention will be required or if we will merely continue with a trial of conservative management. History of Present Illness Reason for Consultation: Nephrolithiasis History of Present Illness This is a 42-year-old male who presented to the emergency department secondary to right flank pain. The patient says that he has been having on and off right flank pain which radiates to his abdomen for approximately 1 week. Patient does report history of kidney stones approximately 2-3 times in the past but he has always been able to successfully pass the kidney stones without any procedural intervention. With his current presentation he denies any fevers. He has had occasional chills. He denies any nausea or vomiting. He notes he has been urinating without difficulty and denies any hematuria or dysuria. Patient reports he is a diabetic for which he utilizes an insulin pump. He does report that he is active when he is feeling well and feels as though he can easily walk a mile on a flat surface and can negotiate steps and inclines without any chest pain or shortness of breath. Since arrival to hospital the patient has had labs and imaging which showed PET reviewed. CT scan of the abdomen pelvis showed the patient had a 6.7 mm distal right ureteral stone resulting in right-sided hydronephrosis. He also had a 2.3 mm stone in the lower pole of the right kidney. Labs include a CBC her white blood cell count, hemoglobin, and platelet count were all normal. His hematocrit was slightly low at 40.2. Chemistry profile showed sodium and potassium were both within normal range. His BUN was normal. Creatinine had a slight elevation at 1.46 (review of records show that creatinine usually runs within the normal range). Urinalysis was not indicative of infection. At the time my interview the patient was resting comfortably in bed and he was in no distress. Allergies Allergy/AdvReac Type Severity Reaction Status Date / Time No Known Allergies Allergy Verified 12/01/22 10:19 No Known Drug Allergies Allergy Uncoded 12/01/22 10:19 Home Medications Medication Instructions Recorded Confirmed Type aspirin 81 mg tablet,delayed 81 mg PO QPM 09/04/18 02/07/23 History release lisinopril 40 mg tablet 40 mg PO QPM 01/14/19 02/07/23 History insulin lispro 100 unit/mL See Rx Instructions .Route .COMPLEX 02/07/23 02/07/23 History subcutaneous solution (Humalog U-100 Insulin) latanoprost 0.005 % eye drops 1 drp ophthalmic (eye) UD 02/07/23 02/07/23 History Patient History Medical History Cataract, bilateral Diabetes mellitus type 1 INSULIN PUMP Diabetic retinopathy Hypertension Situational anxiety Surgical History History of carpal tunnel surgery of right wrist History of cataract surgery RT History of detached retina repair LEFT EYE History of eye surgery SCAR TISSURE REMOVED FROM RIGHT EYE Family History Father Prostate cancer Mother Vitamin B 12 deficiency Thyroid disorder Social History Smoking Status: Never smoker Second Hand Exposure: No; Do You Dip or Chew Tobacco: No; Hx Alcohol Use: No Hx Substance Use: Yes Preferred Language: Malay Communication Ability: Effective Width Stripper Required: No Beliefs That Will Affect Care: None marital status: Current Living Situation: Family Feels Safe at Home: Yes Assistive Devices: Glasses Review of Systems Constitutional: + chills; no fever Eyes: + corrective lenses Ear, Nose, Mouth, Throat: no hearing loss Respiratory: no dyspnea Cardiovascular: no chest pain Gastrointestinal: + abdominal pain (Radiating from right foot); no nausea and no vomiting Genitourinary: + as per Subjective / HPI Musculoskeletal: + back pain (Right flank) Integumentary: no rash Neurologic: no localized weakness Physical Exam Constitutional: WD/WN, vitals as above Eyes: no conjunctival abnormality ENMT: Ears: no hearing impairment Mouth: no oropharynx abnormality Neck: trachea midline Respiratory: normal respiratory effort; no respiratory distress and no labored breathing Cardiovascular: Rate/Rhythm: regular rate and regular rhythm Gastrointestinal (Abdomen): Abdomen is soft, nonrigid, nondistended. At the time of my exam there is no pain with palpation and no rebound tenderness or guarding Musculoskeletal: No calf tenderness Skin: no rashes Neurologic: moves all extremities Psychiatric: A+Ox3, euthymic affect Genitourinary: At the time of my interview the patient had no CVA has had the wrist with percussion bilaterally Results & Data Vital Signs (Past 12 Hours) Vital Signs Temp Pulse Pulse Resp BP BP Pulse Ox 02/07/23 02:10 02/07/23 02:10 78 18 166/90 H 96 02/07/23 02:02 79 02/07/23 01:36 36.9 C 86 18 149/95 H 97 O2 Del Method 02/07/23 02:10 Room Air 02/07/23 02:10 Room Air 02/07/23 02:02 02/07/23 01:36 Room Air PG Care Time/CCT Total # of Minutes Spent Total Time Spent with Patient: Total time spent is greater than 50% in coordination of care (as documented) at patient's floor/unit and/or counseling patient: Coding Level of Care Code 78667 IN/OBS CONSULT LVL 5,80M Diagnoses Renal colic on right side N23
[2023-02-07] MEDS ORDERED: GLUCOSE 10 TAB/TUBE PO PRN (07:13)
[2023-02-07] MEDS ORDERED: DEXTROSE 50% 50 ML SYRINGE IV PRN (07:13)
[2023-02-07] MEDS ORDERED: CARBOHYDRATES FOR HYPOGLYCEMIA PO PRN (07:13)
[2023-02-07] MEDS ORDERED: GLUCOSE 40% GEL 15 GM TUBE PO PRN (07:13)
[2023-02-07] MEDS ORDERED: GLUCAGON FOR INJ 1 MG VIAL SQ PRN (07:13)
[2023-02-07] MEDS: SODIUM CHLORIDE 0.9% 1000ML 1,000 ML IV SCH ×3 (07:58→23:38)
[2023-02-07] MEDS: ACETAMINOPHEN 1,000 MG/100 ML VIAL IV PRN ×2 (08:13→23:55)
[2023-02-07] MEDS: HYDROmorphone INJ 1 MG/ML SYRINGE IV PRN ×2 (09:30→20:11)
[2023-02-07] MEDS: ONDANSETRON INJ 2 MG/ML 2 ML VIAL IV PRN (13:51)
[2023-02-08] MEDS: HYDROmorphone INJ 1 MG/ML SYRINGE IV PRN (04:55)
[2023-02-08] MEDS: SODIUM CHLORIDE 0.9% 1000ML 1,000 ML IV SCH (07:21)
[2023-02-08] MEDS ORDERED: TAMSULOSIN HCL 0.4 MG CAP PO SCH (09:00)
--- NOTE | 2023-02-08 09:10 | Urology Progress Note ---
Date of Service February 08, 2023 Assessment & Plan (1) Renal colic on right side: (2) Ureterolithiasis: Plan: 42-year-old male admitted for right renal colic secondary to a 6 mm distal right ureteral stone with hydronephrosis. Remains afebrile with stable vitals. Denies stone passage overnight. Pain adequately controlled. We reviewed options for stone management including discharge to home if pain is controlled with outpatient follow-up. Discussed option for right ureteral stent while inpatient. Discussed outpatient surgical options including ESWL versus ureteroscopy, laser lithotripsy or stent placement. Ureteral stents were discussed in detail. After discussion, he would like to be discharged to home with trial of passage. Okay to discharge from standpoint when medically stable. Recommend discharge with urien strainer and tamsulosin, prn antiemetics and analgesia for symptom management. Will arrange outpatient follow-up with our service for stone management. will sign off. Admission and Anticipated Discharge Date Admission Date: February 07, 2023 Subjective Patient seen and examined at bedside this morning, chart reviewed. No acute issues overnight. Denies stone passage. Reports pain adequately controlled. Voiding without difficulty, no dysuria or hematuria. Denies nausea, vomiting, fever or chills. Review of Systems Constitutional: as per Subjective / HPI Gastrointestinal: as per Subjective / HPI Genitourinary: + as per Subjective / HPI Physical Exam Physical Exam: General: well-appearing, no acute distress HEENT: Normocephalic, mucous membranes moist Pulmonary: Nonlabored respirations Abdomen: Nondistended Extremities: Moves all 4 spontaneously Neuro: No gross deficits Psych: alert and oriented, normal mood Skin: Warm, dry, no rashes noted Results & Data Vital Signs (Past 12 Hours) Vital Signs Temp Pulse Resp BP Pulse Ox O2 Del Method 02/08/23 05:49 36.9 C 71 18 122/61 94 Room Air PG Care Time/CCT Total # of Minutes Spent Total Time Spent with Patient: Total time spent is greater than 50% in coordination of care (as documented) at patient's floor/unit and/or counseling patient: Coding Level of Care Code 44214 SUB INP/OBS CARE 2/35MIN Diagnoses Renal colic on right side N23 Ureterolithiasis N20.1
[2023-02-08] MEDS: ONDANSETRON INJ 2 MG/ML 2 ML VIAL IV PRN (09:16)
--- NOTE | 2023-02-08 10:35 | Discharge Summary ---
Date of Service February 08, 2023 Admission HPI Per Admitting Provider 42 yo male with PMHx HTN and DM1 presents with R flank pain. 1 wk ago began having waxing and waning R sided flank pain. Pain located at low R back and wraps around to groin. Associated nausea and chills. Denies fever, headache, sob, chest pain, abd pain, vomiting, diarrhea, dysuria, hematuria. He has had 2- 3 kidney stones in the past size unknown but he has been able to pass all on his own without intervention. Discharge Data Allergies Allergy/AdvReac Type Severity Reaction Status Date / Time No Known Allergies Allergy Verified 12/01/22 10:19 Consultations 02/07/23 04:40 ED Decision to Admit Stat 02/07/23 05:20 Consult Urology Stat 02/07/23 05:52 Consult Urology Routine Ordered Studies 02/07/23 01:51 CT abd pelvis wo con Stat Discharge Plan Discharge Items Patient Disposition: Home - Self-Care Reason For Visit: RT FLANK PAIN Discharge Diagnosis: kidney stone Condition on Discharge: Good Activity: Resume your previous activity Non-emergency contact: Primary Care Provider Call non-emergency contact if: you have any medication questions Follow-up/Referrals: Olivia Connor CRNP [Primary Care Provider] - Diet: Regular Addtl Attending Provider Instructions: recommend to strain your urine. Recommend followup with outpatient Urology. Followup with PCP. Pending Studies at Discharge: No Stand-Alone Forms: My [facility] [place], Smoking Cessation Medications and DC Order Prescriptions: New tamsulosin 0.4 mg Capsule 0.4 mg PO QAM Qty: 15 0RF acetaminophen 325 mg capsule 325 mg PO QID 14 Days Qty: 56 0RF oxycodone 5 mg tablet 5 mg PO Q8H PRN (Reason: severe pain (scale score 7-10)) Qty: 14 0RF Continued aspirin 81 mg Tablet,Delayed Release (Dr/Ec) 81 mg PO QPM insulin lispro [Humalog U-100 Insulin] 100 unit/mL solution See Rx Instructions .ROUTE .COMPLEX Rx Instructions: up to 100 units daily via insulin pump latanoprost 0.005 % drops 1 drp ophthalmic (eye) UD Discontinued lisinopril 40 mg tablet 40 mg PO QPM Discharge Orders: Discharge Order (Routine); Ordered 02/08/23 Ordered By: Kervin Andres Admission Data Admit Date/Time: 02/07/23 05:42 Attending Provider: Kervin Andres Admit Provider: Doni Casas Primary Care Provider: Olivia Connor Other Providers: Tk Clemente ; Chi Munson Coding Diagnoses
--- NOTE | 2023-02-09 06:42 | Billing Data ---
Date of Service February 09, 2023 Coding Level of Care Code 85228 INT INP/OBS CARE
== END 2023-02-08 12:08 | disposition home or self-care (01) | DRG 694 ==
LOC: ED 01:35 → 3N 05:42 → SUATTDRO 05:42 → 3N 06:25
DX: I10 Essential (primary) hypertension; Z79.82 Long term (current) use of aspirin; N23 Unspecified renal colic; E10.9 Type 1 diabetes mellitus without complications; Z79.4 Long term (current) use of insulin; N17.9 Acute kidney failure, unspecified; N20.1 Calculus of ureter

== ENCOUNTER 2023-02-11 19:01 | Inpatient (IN) ==
[2023-02-11] MEDS ORDERED: SODIUM CHLORIDE 0.9% 1000ML 1,000 ML IV STA (19:12)
[2023-02-11] MEDS ORDERED: KETOROLAC TROMETHAMINE 15 MG/ML VIAL IV STA (19:58)
[2023-02-11] MEDS ORDERED: ONDANSETRON INJ 2 MG/ML 2 ML VIAL IV STA (19:58)
--- NOTE | 2023-02-11 19:59 | XRay Report ---
KUB CLINICAL HISTORY: Nephrolithiasis. FINDINGS: 3 AP supine abdominal radiographs are correlated with abdominal CT dated 123. There is a no nobstructed abdominal bowel gas pattern. Moderate fecal retention is seen throughout the colon. A 6 m m calcification projecting over the right sacrum likely corresponds to the right ureteral stone seen by CT on 02/07/2023. Additional phleboliths are seen in the pelvis. No calcifications are clearly ident ified projecting over either kidney. The right renal shadow is largely obscured by overlying colonic contents. The bony structures appear intact. IMPRESSION: A 6 mm distal right ureteral stone is again noted. Electronically signed by: Hari Lucas M.D. 02/11/2023 7:58 PM
[2023-02-11 20:04] LABS: Basophils # (auto) 0.03 K/uL (0-0.2); Basophils % (auto) 0.6 %; Eosinophils # (auto) 0.09 K/uL (0-0.50); Eosinophils % (auto) 1.7 %; Hematocrit (blood only) 36.9 % (42.0-52.0); Hemoglobin 12.9 g/dl (14.0-18.0); Immature Granulocytes # (auto) 0.01 K/uL (0.01-0.20); Immature Granulocytes % (auto) 0.2 %; Lymphocytes # (auto) 1.17 K/uL (1.2-3.4); Mean Corpuscular Hemoglobin 31.1 pg (25.0-34.0); Mean Corpuscular Volume 88.9 fL (80.0-100.0); Monocytes # (auto) 0.73 K/uL (0.11-0.59); Monocytes % (auto) 13.7 %; Neutrophils # (auto) 3.28 K/uL (1.40-6.50); Neutrophils % (auto) 61.8 %; Platelet Count 176 K/uL (130-400); RDW Coefficient of Variation 12.3 % (11.5-14.5); RDW Standard Deviation 39.8 fL (36.4-46.3); Red Blood Count 4.15 M/uL (4.70-6.10); White Blood Count 5.31 K/ul (4.8-10.8)
[2023-02-11 20:16] LABS: Appearance Urine Clear (Clear); Bilirubin Urine Negative (Negative); Blood Urine Negative (Negative); Color Urine Dark Yellow; Glucose Urine UA Negative (Negative); Ketones Urine 2+ (Negative); Leukocyte Esterase Urine Negative (Negative); Nitrite Urine Negative (Negative); Protein Urine Negative (Negative); Specific Gravity Urine 1.021 (1.000-1.030); Urobilinogen Urine Negative (Negative); pH Urine 6.5 (4.5-7.5)
[2023-02-11 20:23] LABS: Albumin Globulin Ratio 1.5 (0.9-2); Albumin Level 4.1 gm/dl (3.4-5.0); BUN Creatinine Ratio 9.6 (10-20); Calcium 9.6 mg/dl (8.6-10.3); Creatinine Clr Calc Pharmacy 70.6 ml/min; Est GFR (African American) 57.6 ml/min; Est GFR (Non-African American) 49.7 ml/min; Globulin 2.7 gm/dl (2.5-4.0); Total Protein 6.8 gm/dl (6.0-8.3)
--- NOTE | 2023-02-11 22:04 | Ultrasound Report ---
ULTRASOUND KIDNEYS AND BLADDER CLINICAL HISTORY: Right flank pain. Ureteral stone. COMPARISON STUDY: Abdominal radiograph dated 02/11/2023. Abdominal CT dated 02/07/2023. TECHNIQUE: Real-time, grayscale, and color flow sonography of the kidneys and bladder is performed. I mages are reviewed in the transverse and longitudinal planes. FINDINGS: Kidneys: The kidneys are normal in size and echotexture. The right kidney measures 12.0 cm in length and the left kidney measures 12.9 cm in length. There is moderate right-sided hydronephrosis. No hydr onephrosis is seen on the lateral. No shadowing renal calculi are identified. There is no sonographic evidence of contour deforming renal mass lesion. No perinephric fluid is identified. Bladder: The bladder is normal in appearance. Bilateral ureteral jets were seen. IMPRESSION: 1. There is moderate right-sided hydronephrosis consistent with the patient's known obstructing right ureteral stone. 2. No hydronephrosis is seen on the left. 3. The bladder is normal as imaged. ACT 112: Negative or not required by law. Electronically signed by: Hari Lucas M.D. 02/11/2023 10:03 PM
--- NOTE | 2023-02-11 23:38 | Emergency Department Note ---
History of Present Illness General Chief Complaint: Kidney Stone Stated Complaint: KIDNEY STONE Time Seen by Provider: 02/11/23 19:44 History of Present Illness Provider Complaint: flank pain Onset (ago): 4 day(s) Pain Consistency: intermittent Location: R flank Radiation: RLQ Severity: moderate Maximum Pain Intensity: 8 Current Pain Intensity: 8 Quality: + stabbing and + sharp Relieved By: + nothing Exacerbated By: + nothing Context: + history of similar episodes (Recently diagnosed with kidney stones); no foreign travel, no possible food poisoning, no sick contacts, no recent antibiotic use, no recent surgery/procedure or no recent injury Associated Symptoms: + nausea and + hematuria; no vomiting, no diarrhea, no fever, no chills, no constipation, no dysuria, no hematemesis, no hematochezia, no melena, no syncope, no headache, no chest pain and no breathing difficulty Home Medications Medication Instructions Recorded Confirmed Type aspirin 81 mg tablet,delayed 81 mg PO QPM 09/04/18 02/11/23 History release insulin lispro 100 unit/mL 0 unit continuous IV infusion DAILY 02/07/23 02/11/23 History subcutaneous solution (Humalog U-100 Insulin) latanoprost 0.005 % eye drops 1 drp ophthalmic (eye) UD 02/07/23 02/11/23 History acetaminophen 325 mg capsule 325 mg PO QID 2 weeks #56 caps 02/08/23 02/11/23 Rx oxycodone 5 mg tablet 5 mg PO Q8H PRN severe pain (scale 02/08/23 02/11/23 Rx score 7-10) #14 tabs tamsulosin 0.4 mg capsule 0.4 mg PO QAM #15 caps 02/08/23 02/11/23 Rx ketorolac 10 mg tablet 10 mg PO TID PRN Pain 02/11/23 02/11/23 History Allergies Allergy/AdvReac Type Severity Reaction Status Date / Time No Known Allergies Allergy Verified 02/09/23 09:51 Past Med/Surg History Medical History Cataract, bilateral Diabetes mellitus type 1 INSULIN PUMP Diabetic retinopathy Hypertension Situational anxiety Surgical History History of carpal tunnel surgery of right wrist History of cataract surgery RT History of detached retina repair LEFT EYE History of eye surgery SCAR TISSURE REMOVED FROM RIGHT EYE Family History Father Prostate cancer Mother Vitamin B 12 deficiency Thyroid disorder Social History Smoking Status: Never smoker Second Hand Exposure: No; Do You Dip or Chew Tobacco: No; Hx Alcohol Use: No Hx Substance Use: No Preferred Language: Romanian Communication Ability: Effective 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 Beliefs That Will Affect Care: None marital status: Current Living Situation: Significant Other Feels Safe at Home: Yes Assistive Devices: None Physical Exam Vital Signs: Vital Signs - 24 hr 02/11/23 19:09 02/11/23 22:00 02/11/23 21:00 Temperature 36.5 C Temperature Source Temporal Artery Sc an Pulse Rate 101 H 66 Pulse Rate [Right Finger] 80 Pulse Rhythm Regular Pulse Strength Normal Respiratory Rate 20 18 16 Respiratory Effort / Characteristics Non-Labored Sponta neous Respiratory Depth Normal Blood Pressure 122/70 179/96 H Blood Pressure [Le ft Arm] 158/92 H Blood Pressure Marah n 87 123 Blood Pressure Marah n [Left Arm] 114 Pulse Oximetry 99 94 95 Oxygen Delivery Me thod Room Air Room Air Sepsis Recent Feve r Within 48 Hours No Sepsis New/Unexpla ined Change in Men jude Status N/A Sepsis Action Take n by Nursing No Action Required 02/11/23 22:00 Temperature Temperature Source Pulse Rate 65 Pulse Rate [Right Finger] Pulse Rhythm Pulse Strength Respiratory Rate Respiratory Effort / Characteristics Respiratory Depth Blood Pressure Blood Pressure [Le ft Arm] Blood Pressure Marah n Blood Pressure Marah n [Left Arm] Pulse Oximetry Oxygen Delivery Me thod Sepsis Recent Feve r Within 48 Hours Sepsis New/Unexpla ined Change in Men jude Status Sepsis Action Take n by Nursing Physical Exam: Physical Exam GENERAL: She is oriented to person, place, and time. She appears well-developed and well-nourished. She does not appear distressed. HENT: Exam performed. -Head: Normocephalic and atraumatic. -Right Ear: External ear normal. No mastoid erythema -Left Ear: External ear normal. No mastoid erythema -Mouth/Throat: The oropharynx is clear and moist. No trismus in the jaw. No dental abscesses or uvula swelling. No oropharyngeal exudate or tonsillar abscesses. EYES: Conjunctivae and EOM are normal.Right eye exhibits no discharge. Left eye exhibits no discharge. No scleral icterus. NECK: Normal range of motion. Neck supple. No JVD present. No tracheal deviation and normal range of motion present. CV: Normal rate, regular rhythm, normal heart sounds and intact distal pulses. There is no peripheral edema. Palpable radial pulses bue. PULM/CHEST: Effort normal and breath sounds normal. No respiratory distress. No stridor. She has no wheezes. She has no rales. -Chest Wall: She exhibits no tenderness. ABD: The abdomen is soft. Bowel sounds are normal. She has no distension. No mass is present. There is no tenderness. There is no rebound, no guarding, no Blanco's sign and no tenderness at McBurney's point. Rovsig negative. Right- sided CVA tenderness. MUSC/SKEL: Normal range of motion. There is no peripheral edema, tenderness or deformity. NEURO: Motor and sensation grossly intact. SKIN: Skin is warm and dry. She is not diaphoretic. PSYCH: She has a normal mood and affect. Behavior is normal. Judgment and thought content normal. Course Course 1943: The patient was evaluated in room C12. A complete history and physical exam was performed Cardiac monitoring: An order was placed for continuous cardiac monitoring. The monitor shows a rate of 90 with sinus rhythm interpreted by me 2020: Spoke with Dr. Jett on-call urology and he agrees with the plan that if the patient's labs are within normal limits and his pain is under control the patient can be discharged and if the patient's pain is unable to be controlled and he wants a ureteral stent pain the patient can be admitted to the hospitalist team. 2214: Vital signs stable. Creatinine up to 1.67 up from 1.464 days ago. Imaging shows a 6 mm distal right ureteral stone as well as hydroureteronephrosis. Patient states his pain is more under control at this time but states he is interested in getting a ureteral stent now. Patient will be admitted to the [facility] hospitalist team Dr. Verde notified. Administered Medications Discontinued Medications Sodium Chloride (Nss 1000ml) 1,000 mls @ 999 mls/hr IV .Q1H1M STA Stop: 02/11/23 20:12 Last Infusion: 02/11/23 21:08 Dose: 0 mls/hr Documented By: Admin: 02/11/23 19:44 Dose: 999 mls/hr Documented By: ZHANG Ketorolac Tromethamine (Ketorolac Tromethamine 15 Mg/Ml Vial) 15 mg IV NOW STA Stop: 02/11/23 19:59 Last Admin: 02/11/23 20:04 Dose: 15 mg Documented By: ZHANG Ondansetron HCl (Ondansetron Inj 2 Mg/Ml 2 Ml Vial) 4 mg IV NOW STA Stop: 02/11/23 19:59 Last Admin: 02/11/23 20:04 Dose: 4 mg Documented By: ZHANG Medical Decision Making Medical Records Attestation: I reviewed the patient's medical records. External medical records were reviewed. Patient was admitted to this facility from February 07, 2023 until February 08, 2023. At that time he was evaluated by urology and was offered a right ureteral stent but he declined. Laboratory Data Attestation: I reviewed the patient's lab results. 02/11/23 19:45 02/11/23 19:45 Lab Results 02/11/23 02/11/23 02/11/23 Range/Units 19:45 19:45 19:55 WBC 5.31 (4.8-10.8) K/ul RBC 4.15 L (4.70-6.10) M/uL Hgb 12.9 L (14.0-18.0) g/dl Hct 36.9 L (42.0-52.0) % MCV 88.9 (80.0-100.0) fL MCH 31.1 (25.0-34.0) pg MCHC 35.0 (32.0-36.0) g/dL RDW Std Deviation 39.8 (36.4-46.3) fL RDW Coeff of Les 12.3 (11.5-14.5) % Plt Count 176 (130-400) K/uL MPV 13.0 H (9.4-12.4) fL Immature Gran % (Auto) 0.2 % Neut % (Auto) 61.8 % Lymph % (Auto) 22.0 % [place] % (Auto) 13.7 % Eos % (Auto) 1.7 % Baso % (Auto) 0.6 % Neut # (Auto) 3.28 (1.40-6.50) K/uL Lymph # (Auto) 1.17 L (1.2-3.4) K/uL [place] # (Auto) 0.73 H (0.11-0.59) K/uL Eos # (Auto) 0.09 (0-0.50) K/uL Baso # (Auto) 0.03 (0-0.2) K/uL Immature Gran # (Auto) 0.01 (0.01-0.20) K/uL Sodium 134 L (136-145) mmol/L Potassium 4.0 (3.5-5.1) mmol/L Chloride 99 (98-107) mmol/L Carbon Dioxide 24 (21-32) mmol/L Anion Gap 11 (3-11) BUN 16 (6-23) mg/dl Creatinine 1.67 H (0.6-1.4) mg/dl Est Cr Clr Drug Dosing 70.6 ml/min Est GFR ( Amer) 57.6 ml/min Est GFR (Non-Af Amer) 49.7 ml/min BUN/Creatinine Ratio 9.6 L (10-20) Glucose 225 H (70-99(Fasting)) mg/dl Calcium 9.6 (8.6-10.3) mg/dl Total Bilirubin 1.0 (0.2-1.0) mg/dl AST 14 (13-39) U/L ALT 8 (7-52) U/L Alkaline Phosphatase 79 (34-104) U/L Total Protein 6.8 (6.0-8.3) gm/dl Albumin 4.1 (3.4-5.0) gm/dl Globulin 2.7 (2.5-4.0) gm/dl Albumin/Globulin Ratio 1.5 (0.9-2) Lipase 3 L (11-82) U/L Urine Color Dark Yellow Urine Appearance Clear (Clear) Urine pH 6.5 (4.5-7.5) Ur Specific [place] 1.021 (1.000-1.030) Urine Protein Negative (Negative) Urine Glucose (UA) Negative (Negative) Urine Ketones 2+ H (Negative) Urine Blood Negative (Negative) Urine Nitrite Negative (Negative) Urine Bilirubin Negative (Negative) Urine Urobilinogen Negative (Negative) Ur Leukocyte Esterase Negative (Negative) Imaging Data Radiologist's Impression: KUB X-Ray 02/11/23 19:12 KUB CLINICAL HISTORY: Nephrolithiasis. FINDINGS: 3 AP supine abdominal radiographs are correlated with abdominal CT dated 123. There is a nonobstructed abdominal bowel gas pattern. Moderate fecal retention is seen throughout the colon. A 6 mm calcification projecting over the right sacrum likely corresponds to the right ureteral stone seen by CT on 02/07/2023. Additional phleboliths are seen in the pelvis. No calcifications are clearly identified projecting over either kidney. The right renal shadow is largely obscured by overlying colonic contents. The bony structures appear in tact. IMPRESSION: A 6 mm distal right ureteral stone is again noted. Electronically signed by: Hari Lucas M.D. 02/11/2023 7:58 PM Renal Ultrasound 02/11/23 19:58 ULTRASOUND KIDNEYS AND BLADDER CLINICAL HISTORY: Right flank pain. Ureteral stone. COMPARISON STUDY: Abdominal radiograph dated 02/11/2023. Abdominal CT dated 02/07/2023. TECHNIQUE: Real-time, grayscale, and color flow sonography of the kidneys and bladder is performed. Images are reviewed in the transverse and longitudinal planes. FINDINGS: Kidneys: The kidneys are normal in size and echotexture. The right kidney measures 12.0 cm in length and the left kidney measures 12.9 cm in length. There is moderate right-sided hydronephrosis. No hydronephrosis is seen on the lateral. No shadowing renal calculi are identified. There is no sonographic evidence of contour deforming renal mass lesion. No perinephric fluid is identified. Bladder: The bladder is normal in appearance. Bilateral ureteral jets were seen. IMPRESSION: 1. There is moderate right-sided hydronephrosis consistent with the patient's known obstructing right ureteral stone. 2. No hydronephrosis is seen on the left. 3. The bladder is normal as imaged. ACT 112: Negative or not required by law. Electronically signed by: Hari Lucas M.D. 02/11/2023 10:03 PM MDM Narrative 1944: The patient was evaluated in room C12. A complete history and physical exam was performed Cardiac monitoring: An order was placed for continuous cardiac monitoring. The monitor shows a rate of 90 with sinus rhythm interpreted by ca 2020: Spoke with Dr. Jett on-call urology and he agrees with the plan that if the patient's labs are within normal limits and his pain is under control the patient can be discharged and if the patient's pain is unable to be controlled and he wants a ureteral stent pain the patient can be admitted to the hospitalist team. 2214: Vital signs stable. Creatinine up to 1.67 up from 1.464 days ago. Imaging shows a 6 mm distal right ureteral stone as well as hydroureteronephrosis. Patient states his pain is more under control at this time but states he is interested in getting a ureteral stent now. Patient will be admitted to the [facility] hospitalist team Dr. Verde notified. Impression & Plan Hydronephrosis concurrent with and due to calculi of kidney and ureter, HUMBLE (acute kidney injury) Discharge Plan Visit Data Chief Complaint: Kidney Stone Stated Complaint: KIDNEY STONE ED Provider: Boogie White Discharge Problem: Hydronephrosis concurrent with and due to calculi of kidney and ureter, HUMBLE (acute kidney injury) Patient Disposition: Admitted As Inpatient Forms Stand Alone Forms: [facility] Red[facility] Prescriptions Prescriptions: No Action aspirin 81 mg Tablet,Delayed Release (Dr/Ec) 81 mg PO QPM insulin lispro [Humalog U-100 Insulin] 100 unit/mL solution 0 unit continuous IV infusion DAILY Rx Instructions: UP TO 100 UNITS DAILY VIA CONTINUOUS INFUSION PUMP latanoprost 0.005 % drops 1 drp ophthalmic (eye) UD tamsulosin 0.4 mg Capsule 0.4 mg PO QAM Qty: 15 0RF acetaminophen 325 mg capsule 325 mg PO QID 14 Days Qty: 56 0RF oxycodone 5 mg tablet 5 mg PO Q8H PRN (Reason: severe pain (scale score 7-10)) Qty: 14 0RF ketorolac 10 mg tablet 10 mg PO TID PRN (Reason: Pain) Rx Instructions: TAKE THIS MED WITH FOOD Referrals Referrals: Olivia Connor CRNP [Primary Care Provider] -
--- NOTE | 2023-02-12 00:13 | History & Physical Report ---
Date of Service February 12, 2023 Assessment & Plan (1) Hydronephrosis concurrent with and due to calculi of kidney and ureter: Plan: 42 yo male with PMHx HTN and DM1 presents with R flank pain. #Ureteral stone -presents for readmission of waxing and waning R flank/back pain due to kidney stone. He was unable to tolerate pain at home with trial of passage of stone. No leukocytosis. Afebrile. UA normal. He does have history have stones that were passed without intervention, previous sizes unknown. -CT A/P (02/07/23): Mild to moderate right-sided hydronephrosis due to a distal right ureteral stone measuring 6.7 mm. 2.3 mm stone within the lower pole of the right kidney. -received 1L NSS in ED. Cont. NSS @ 125. -tamsulosin daily, pain control, zofran -urology consulted #HUMBLE -Cr 1.67 on admission, baseline wnl. Due to hydronephrosis as above. -lisinopril held as of last visit #HTN -hold lisinopril #DM1 -pt with continuous insulin pump. ACHS BSG checks. Hypoglycemic protocol in place. DVT ppx: SCDs; no chemical in case for intervention FEN/GI: NPO, NSS @ 125 Code Status: full Dispo: med surg (2) HUMBLE (acute kidney injury): (3) Diabetes mellitus type I: (4) Hypertension: History of Present Illness Chief Complaint: kidney stone Primary Care Provider: THAD Gagnon 42 yo male with PMHx HTN and DM1 presents with R flank pain. Discharged from [facility] a few days ago for the same complaint. Tried to manage kidney stone pain at home with trial of passage but pain got even worse from initial presentation. He was scheduled to f/u with urology as an outpatient next week. Pain located at low R back and wraps around to groin. Associated nausea and chills. Denies fever, headache, sob, chest pain, abd pain, vomiting, diarrhea, dysuria, hematuria. He has had 2-3 kidney stones in the past size unknown but he has been able to pass all on his own without intervention. Allergies Allergy/AdvReac Type Severity Reaction Status Date / Time No Known Allergies Allergy Verified 02/09/23 09:51 Home Medications Medication Instructions Recorded Confirmed Type aspirin 81 mg tablet,delayed 81 mg PO QPM 09/04/18 02/11/23 History release insulin lispro 100 unit/mL 0 unit continuous IV infusion DAILY 02/07/23 02/11/23 History subcutaneous solution (Humalog U-100 Insulin) latanoprost 0.005 % eye drops 1 drp ophthalmic (eye) UD 02/07/23 02/11/23 History acetaminophen 325 mg capsule 325 mg PO QID 2 weeks #56 caps 02/08/23 02/11/23 Rx oxycodone 5 mg tablet 5 mg PO Q8H PRN severe pain (scale 02/08/23 02/11/23 Rx score 7-10) #14 tabs tamsulosin 0.4 mg capsule 0.4 mg PO QAM #15 caps 02/08/23 02/11/23 Rx ketorolac 10 mg tablet 10 mg PO TID PRN Pain 02/11/23 02/11/23 History Past Med/Surg History Medical History Cataract, bilateral Diabetes mellitus type 1 INSULIN PUMP Diabetic retinopathy Hypertension Situational anxiety Surgical History History of carpal tunnel surgery of right wrist History of cataract surgery RT History of detached retina repair LEFT EYE History of eye surgery SCAR TISSURE REMOVED FROM RIGHT EYE Family History Father Prostate cancer Mother Vitamin B 12 deficiency Thyroid disorder Social History Smoking Status: Never smoker Second Hand Exposure: No; Do You Dip or Chew Tobacco: No; Hx Alcohol Use: No Hx Substance Use: No Preferred Language: Slovak Communication Ability: Effective Softball Umpire Required: No Beliefs That Will Affect Care: None marital status: Current Living Situation: Significant Other Other Information That Helps Us Care for You: No Feels Safe at Home: Yes Safety Concerns: Feels Safe At This Time Assistive Devices: Glasses Review of Systems Review of Systems: All systems reviewed & are unremarkable except as noted in HPI & below Physical Exam Physical Exam: Constitutional: in no acute distress, pleasant and normal affect, intact memory. AOx3. Vitals as above. HEENT: No scleral injection or discharge. Moist mucous membranes. Neck: Supple without lymphadenopathy or thyromegaly. Trachea midline. Lungs: Clear to auscultation bilaterally with good effort. No wheezes/rales/rhonchi. Cardiac: Regular rate and rhythm.No murmurs.No extremity edema. 2+ distal peripheral pulses. Abdomen: Bowel sounds present. Soft, nontender, and nondistended.No guarding. No hepatosplenomegaly. No CVA tenderness. Nontender low back and groin. MSK: No cyanosis or clubbing. Extremities motor strength 5/5. Skin: No rashes, warm, dry. Neurologic: no focal deficits Results & Data Results & Data Vital Signs (Past 12 Hours) Vital Signs Temp Pulse Pulse Resp BP BP Pulse Ox 02/12/23 00:00 72 18 94 02/11/23 23:30 72 18 176/94 H 95 02/11/23 22:30 68 18 173/97 H 94 02/11/23 22:00 65 02/11/23 21:00 80 16 158/92 H 95 02/11/23 22:00 66 18 179/96 H 94 02/11/23 19:09 36.5 C 101 H 20 122/70 99 O2 Del Method 02/12/23 00:00 02/11/23 23:30 02/11/23 22:30 02/11/23 22:00 02/11/23 21:00 Room Air 02/11/23 22:00 02/11/23 19:09 Room Air Laboratory Results Laboratory Results WBC 5.31 K/ul (4.8-10.8) 02/11/23 19:45 RBC 4.15 M/uL (4.70-6.10) L 02/11/23 19:45 Hgb 12.9 g/dl (14.0-18.0) L 02/11/23 19:45 Hct 36.9 % (42.0-52.0) L 02/11/23 19:45 MCV 88.9 fL (80.0-100.0) 02/11/23 19:45 MCH 31.1 pg (25.0-34.0) 02/11/23 19:45 MCHC 35.0 g/dL (32.0-36.0) 02/11/23 19:45 RDW Std Deviation 39.8 fL (36.4-46.3) 02/11/23 19:45 RDW Coeff of Les 12.3 % (11.5-14.5) 02/11/23 19:45 Plt Count 176 K/uL (130-400) 02/11/23 19:45 MPV 13.0 fL (9.4-12.4) H 02/11/23 19:45 Immature Gran % (Auto) 0.2 % 02/11/23 19:45 Neut % (Auto) 61.8 % 02/11/23 19:45 Lymph % (Auto) 22.0 % 02/11/23 19:45 [place] % (Auto) 13.7 % 02/11/23 19:45 Eos % (Auto) 1.7 % 02/11/23 19:45 Baso % (Auto) 0.6 % 02/11/23 19:45 Neut # (Auto) 3.28 K/uL (1.40-6.50) 02/11/23 19:45 Lymph # (Auto) 1.17 K/uL (1.2-3.4) L 02/11/23 19:45 [place] # (Auto) 0.73 K/uL (0.11-0.59) H 02/11/23 19:45 Eos # (Auto) 0.09 K/uL (0-0.50) 02/11/23 19:45 Baso # (Auto) 0.03 K/uL (0-0.2) 02/11/23 19:45 Immature Gran # (Auto) 0.01 K/uL (0.01-0.20) 02/11/23 19:45 Sodium 134 mmol/L (136-145) L 02/11/23 19:45 Potassium 4.0 mmol/L (3.5-5.1) 02/11/23 19:45 Chloride 99 mmol/L (98-107) 02/11/23 19:45 Carbon Dioxide 24 mmol/L (21-32) 02/11/23 19:45 Anion Gap 11 (3-11) 02/11/23 19:45 BUN 16 mg/dl (6-23) 02/11/23 19:45 Creatinine 1.67 mg/dl (0.6-1.4) H 02/11/23 19:45 Est Cr Clr Drug Dosing 70.6 ml/min 02/11/23 19:45 Est GFR ( Amer) 57.6 ml/min 02/11/23 19:45 Est GFR (Non-Af Amer) 49.7 ml/min 02/11/23 19:45 BUN/Creatinine Ratio 9.6 (10-20) L 02/11/23 19:45 Glucose 225 mg/dl (70-99(Fasting)) H 02/11/23 19:45 Calcium 9.6 mg/dl (8.6-10.3) 02/11/23 19:45 Total Bilirubin 1.0 mg/dl (0.2-1.0) 02/11/23 19:45 AST 14 U/L (13-39) 02/11/23 19:45 ALT 8 U/L (7-52) 02/11/23 19:45 Alkaline Phosphatase 79 U/L (34-104) 02/11/23 19:45 Total Protein 6.8 gm/dl (6.0-8.3) 02/11/23 19:45 Albumin 4.1 gm/dl (3.4-5.0) 02/11/23 19:45 Globulin 2.7 gm/dl (2.5-4.0) 02/11/23 19:45 Albumin/Globulin Ratio 1.5 (0.9-2) 02/11/23 19:45 Lipase 3 U/L (11-82) L 02/11/23 19:45 Urine Color Dark Yellow 02/11/23 19:55 Urine Appearance Clear (Clear) 02/11/23 19:55 Urine pH 6.5 (4.5-7.5) 02/11/23 19:55 Ur Specific [place] 1.021 (1.000-1.030) 02/11/23 19:55 Urine Protein Negative (Negative) 02/11/23 19:55 Urine Glucose (UA) Negative (Negative) 02/11/23 19:55 Urine Ketones 2+ (Negative) H 02/11/23 19:55 Urine Blood Negative (Negative) 02/11/23 19:55 Urine Nitrite Negative (Negative) 02/11/23 19:55 Urine Bilirubin Negative (Negative) 02/11/23 19:55 Urine Urobilinogen Negative (Negative) 02/11/23 19:55 Ur Leukocyte Esterase Negative (Negative) 02/11/23 19:55 Impressions KUB X-Ray 02/11/23 19:12 KUB CLINICAL HISTORY: Nephrolithiasis. FINDINGS: 3 AP supine abdominal radiographs are correlated with abdominal CT dated 123. There is a nonobstructed abdominal bowel gas pattern. Moderate fecal retention is seen throughout the colon. A 6 mm calcification projecting over the right sacrum likely corresponds to the right ureteral stone seen by CT on 02/07/2023. Additional phleboliths are seen in the pelvis. No calcifications are clearly identified projecting over either kidney. The right renal shadow is largely obscured by overlying colonic contents. The bony structures appear intact. IMPRESSION: A 6 mm distal right ureteral stone is again noted. Electronically signed by: Hari Lucas M.D. 02/11/2023 7:58 PM Renal Ultrasound 02/11/23 19:58 ULTRASOUND KIDNEYS AND BLADDER CLINICAL HISTORY: Right flank pain. Ureteral stone. COMPARISON STUDY: Abdominal radiograph dated 02/11/2023. Abdominal CT dated 02/07/2023. TECHNIQUE: Real-time, grayscale, and color flow sonography of the kidneys and bladder is performed. Images are reviewed in the transverse and longitudinal planes. FINDINGS: Kidneys: The kidneys are normal in size and echotexture. The right kidney measures 12.0 cm in length and the left kidney measures 12.9 cm in length. There is moderate right-sided hydronephrosis. No hydronephrosis is seen on the lateral . No shadowing renal calculi are identified. There is no sonographic evidence of contour deforming renal mass lesion. No perinephric fluid is identified. Bladder: The bladder is normal in appearance. Bilateral ureteral jets were seen. IMPRESSION: 1. There is moderate right-sided hydronephrosis consistent with the patient's known obstructing right ureteral stone. 2. No hydronephrosis is seen on the left. 3. The bladder is normal as imaged. ACT 112: Negative or not required by law. Electronically signed by: Hari Lucas M.D. 02/11/2023 10:03 PM Supervising Physician Co-Signing Physician Notes Attending addendum: I have physically seen this patient, have supervised the medical residents activities, and agree with the H&P unless as otherwise noted. Assessment and Plan: 6 mm distal right ureteral stone with mild to moderate right-sided hydronephrosis- Tamsulosin 0.4 mg at bedtime Status post 1 L normal saline in the ED Continue with normal saline 125 mils per hour Follow urine culture and sensitivity Ceftriaxone 2 g IV daily Consult urology Acute kidney injury- Creatinine 1.67 with baseline 0.91 Hold lisinopril IV fluids as noted above Repeat laboratories in a.m. Diabetes mellitus- Patient is on insulin pump Will continue to use that and coordinate with nursing with coverage Remaining orders and notations as noted Resident Activity Tracking Resident Involvement: Resident Care Provided Care Provided: Adult Hospital Medicine
[2023-02-12] MEDS ORDERED: ACETAMINOPHEN 1,000 MG/100 ML VIAL IV PRN (02:35)
[2023-02-12] MEDS ORDERED: ONDANSETRON INJ 2 MG/ML 2 ML VIAL IV PRN ×2 (02:35→12:37)
[2023-02-12] MEDS: HYDROmorphone INJ 0.5 MG/0.5 ML SYR IV PRN ×3 (02:57→16:33)
[2023-02-12] MEDS: SODIUM CHLORIDE 0.9% 1000ML 1,000 ML IV SCH ×4 (02:57→20:07)
--- NOTE | 2023-02-12 06:18 | Billing Data ---
Date of Service February 12, 2023 Coding Level of Care Code 21160 INT INP/OBS CARE
[2023-02-12 06:43] LABS: Basophils # (auto) 0.03 K/uL (0-0.2); Basophils % (auto) 0.7 %; Eosinophils # (auto) 0.09 K/uL (0-0.50); Eosinophils % (auto) 2.1 %; Hemoglobin 12.6 g/dl (14.0-18.0); Immature Granulocytes # (auto) 0.01 K/uL (0.01-0.20); Immature Granulocytes % (auto) 0.2 %; Lymphocytes # (auto) 1.37 K/uL (1.2-3.4); Lymphocytes % (auto) 31.3 %; Mean Corpuscular Hemoglobin 31.2 pg (25.0-34.0); Mean Corpuscular Volume 89.1 fL (80.0-100.0); Mean Platelet Volume 12.9 fL (9.4-12.4); Monocytes # (auto) 0.67 K/uL (0.11-0.59); Monocytes % (auto) 15.3 %; Neutrophils # (auto) 2.21 K/uL (1.40-6.50); Neutrophils % (auto) 50.4 %; Platelet Count 178 K/uL (130-400); RDW Coefficient of Variation 12.4 % (11.5-14.5); RDW Standard Deviation 40.7 fL (36.4-46.3); Red Blood Count 4.04 M/uL (4.70-6.10); White Blood Count 4.38 K/ul (4.8-10.8)
[2023-02-12 07:09] LABS: BUN Creatinine Ratio 10.1 (10-20); Calcium 9.1 mg/dl (8.6-10.3); Est GFR (African American) 66.1 ml/min; Est GFR (Non-African American) 57.1 ml/min; Magnesium 1.7 mg/dl (1.7-2.4); Potassium 3.9 mmol/L (3.5-5.1)
[2023-02-12] MEDS: TAMSULOSIN HCL 0.4 MG CAP PO SCH (07:28)
--- NOTE | 2023-02-12 07:31 | Urology Consultation ---
Date of Consultation February 12, 2023 Assessment & Plan (1) Ureterolithiasis: Plan Right distal ureteral calculus He passed on intervention earlier this week but returned over the weekend with severe discomfort I discussed that the same options that were presented to him previously still exists with cystoscopy and stent versus observation He now is ready for intervention We will have to coordinate care but I hope to be able to place a stent later this afternoon Keep n.p.o. for now History of Present Illness Attending Physician: Charles Forde MD History of Present Illness 42-year-old insulin-dependent diabetic seen earlier this week with a right distal ureteral calculus (6 mm) He was offered cystoscopy and stent at that time but elected to trial spontaneous passage He returned to the ER within 48 hours and has had persistent pain He has mild pain this morning compared to what he did yesterday, however he is not asymptomatic and he has not yet passed the stone He is now ready to proceed with a stent Allergies Allergy/AdvReac Type Severity Reaction Status Date / Time No Known Allergies Allergy Verified 02/09/23 09:51 Home Medications Medication Instructions Recorded Confirmed Type aspirin 81 mg tablet,delayed 81 mg PO QPM 09/04/18 02/11/23 History release insulin lispro 100 unit/mL 0 unit continuous IV infusion DAILY 02/07/23 02/11/23 History subcutaneous solution (Humalog U-100 Insulin) latanoprost 0.005 % eye drops 1 drp ophthalmic (eye) UD 02/07/23 02/11/23 History acetaminophen 325 mg capsule 325 mg PO QID 2 weeks #56 caps 02/08/23 02/11/23 Rx oxycodone 5 mg tablet 5 mg PO Q8H PRN severe pain (scale 02/08/23 02/11/23 Rx score 7-10) #14 tabs tamsulosin 0.4 mg capsule 0.4 mg PO QAM #15 caps 02/08/23 02/11/23 Rx ketorolac 10 mg tablet 10 mg PO TID PRN Pain 02/11/23 02/11/23 History Patient History Medical History Cataract, bilateral Diabetes mellitus type 1 INSULIN PUMP Diabetic retinopathy Hypertension Situational anxiety Surgical History History of carpal tunnel surgery of right wrist History of cataract surgery RT History of detached retina repair LEFT EYE History of eye surgery SCAR TISSURE REMOVED FROM RIGHT EYE Family History Father Prostate cancer Mother Vitamin B 12 deficiency Thyroid disorder Social History Smoking Status: Never smoker Second Hand Exposure: No; Do You Dip or Chew Tobacco: No; Hx Alcohol Use: No Hx Substance Use: No Preferred Language: Malaysian Communication Ability: Effective 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 Beliefs That Will Affect Care: None marital status: Current Living Situation: Significant Other Other Information That Helps Us Care for You: No Feels Safe at Home: Yes Safety Concerns: Feels Safe At This Time Assistive Devices: Glasses Review of Systems Review of Systems: All systems reviewed & are unremarkable except as noted in HPI & below Physical Exam Constitutional: well developed and well nourished Neck: neck nontender Respiratory: normal respiratory effort; no respiratory distress and does not use accessory muscles Cardiovascular: Rate/Rhythm: regular rate Vessels: radial pulses present Extremities: no edema Gastrointestinal (Abdomen): Inspection/Auscultation: abdomen normal to inspection Percussion/Palpation: abdomen soft; abdomen nontender and no guarding Musculoskeletal: Head/Neck/Chest: normocephalic and head atraumatic Extremities: extremities normal to inspection Skin: no rashes and no lesions Trauma: no evidence of skin trauma Neurologic: awake; not obtunded Speech / Cognition: normal speech Motor/Sensory: no tremor Psychiatric: Orientation: alert and oriented x 3 Genitourinary: no CVA tenderness Lymphatic: no lymphadenopathy Results & Data Vital Signs (Past 12 Hours) Vital Signs Temp Pulse Pulse Resp BP BP Pulse Ox 02/12/23 07:18 36.7 C 79 15 145/77 H 95 02/12/23 02:35 36.8 C 80 18 165/89 H 95 02/12/23 01:30 67 20 164/93 H 90 02/12/23 00:30 69 12 170/101 H 96 02/12/23 00:00 72 18 94 02/11/23 23:30 72 18 176/94 H 95 02/11/23 22:30 68 18 173/97 H 94 02/11/23 22:00 65 02/11/23 21:00 80 16 158/92 H 95 02/11/23 22:00 66 18 179/96 H 94 O2 Del Method 02/12/23 07:18 Room Air 02/12/23 02:35 Room Air 02/12/23 01:30 02/12/23 00:30 02/12/23 00:00 02/11/23 23:30 02/11/23 22:30 02/11/23 22:00 02/11/23 21:00 Room Air 02/11/23 22:00 PG Care Time/CCT Total # of Minutes Spent Total Time Spent with Patient: Total time spent is greater than 50% in coordination of care (as documented) at patient's floor/unit and/or counseling patient: Coding Level of Care Code 62287 IN/OBS CONSULT LVL 3,45M Diagnoses Ureterolithiasis N20.1
--- NOTE | 2023-02-12 12:12 | Anesthesiology Consultation ---
Date of Service February 12, 2023 Assessment & Plan Chart Review Chart Review: Acceptable Risk for Surgery and Patient NOT seen in Pre Admission Testing Consults Requested none ASA [id number] Proposed Anesthesia Anesthesia Type: MAC History Surgery Operation Date: 02/12/23 12:30 Proposed Procedures p Ureteral Stent Insertion/Removal(Right) - Anthony Jett MD Height/Weight Height: 5 ft 10 in Weight: 106.6 kg Allergies Allergy/AdvReac Type Severity Reaction Status Date / Time No Known Allergies Allergy Verified 02/09/23 09:51 Medications Home Medications Medication Instructions Recorded Confirmed Last Taken aspirin 81 mg tablet,delayed 81 mg PO QPM 09/04/18 02/11/23 10/15/18 release insulin lispro 100 unit/mL 0 unit continuous IV infusion DAILY 02/07/23 02/11/23 Unknown subcutaneous solution (Humalog U-100 Insulin) latanoprost 0.005 % eye drops 1 drp ophthalmic (eye) UD 02/07/23 02/11/23 Unknown acetaminophen 325 mg capsule 325 mg PO QID 2 weeks #56 caps 02/08/23 02/11/23 Unknown oxycodone 5 mg tablet 5 mg PO Q8H PRN severe pain (scale 02/08/23 02/11/23 Unknown score 7-10) #14 tabs tamsulosin 0.4 mg capsule 0.4 mg PO QAM #15 caps 02/08/23 02/11/23 Unknown ketorolac 10 mg tablet 10 mg PO TID PRN Pain 02/11/23 02/11/23 Unknown Active Medications Generic Name Dose Route Start Last Admin Trade Name Freq PRN Reason Stop Dose Admin Hydromorphone HCl 0.5 mg 02/12/23 02:35 02/12/23 08:46 Hydromorphone Inj 0.5 Mg/0.5 Ml Syr IV 02/26/23 02:34 0.5 mg Q3H PRN Administration Pain Sodium Chloride 1,000 mls @ 125 mls/hr 02/12/23 02:35 02/12/23 10:39 Nss 1000ml IV 03/14/23 02:34 125 mls/hr .Q8H TORREY Administration Tamsulosin HCl 0.4 mg 02/12/23 09:00 02/12/23 07:28 Tamsulosin Hcl 0.4 Mg Cap PO 03/14/23 08:59 0.4 mg QAM TORREY Administration Past Medical History Medical History Cataract, bilateral Diabetes mellitus type 1 INSULIN PUMP Diabetic retinopathy Hypertension Situational anxiety Exercise / Class Metabolic Activity II 4-5 Yardwork/Stairs/Walk up hill Past Family History Family History Father Prostate cancer Mother Vitamin B 12 deficiency Thyroid disorder Past Surgical History Surgical History History of carpal tunnel surgery of right wrist History of cataract surgery RT History of detached retina repair LEFT EYE History of eye surgery SCAR TISSURE REMOVED FROM RIGHT EYE Past Anesthesia History No Hx of Anesthesia Complications and No Family Hx of Anesthesia Complications History of PONV No Hx of PONV and No Hx of Motion Sickness Social History Smoking Status: Never smoker Do You Dip or Chew Tobacco: No Hx Alcohol Use: No Hx Substance Use: No substance use type: does not use Physical Exam Vital Signs Last Vital Signs Temp 36.7 C 02/12/23 07:18 Pulse 79 02/12/23 07:18 Resp 15 02/12/23 07:18 BP 145/77 H 02/12/23 07:18 Pulse Ox 95 02/12/23 07:18 O2 Del Method Room Air 02/12/23 07:18 Testing Laboratory Results 02/12/23 05:39 02/12/23 05:39 Urine Color Dark Yellow 02/11/23 19:55 Urine Appearance Clear (Clear) 02/11/23 19:55 Urine pH 6.5 (4.5-7.5) 02/11/23 19:55 Ur Specific Ethel 1.021 (1.000-1.030) 02/11/23 19:55 Urine Protein Negative (Negative) 02/11/23 19:55 Urine Glucose (UA) Negative (Negative) 02/11/23 19:55 Urine Ketones 2+ (Negative) H 02/11/23 19:55 Urine Nitrite Negative (Negative) 02/11/23 19:55 Ur Leukocyte Esterase Negative (Negative) 02/11/23 19:55
[2023-02-12] MEDS ORDERED: LIDOCAINE 2% 2 ML VIAL/AMP(20MG/ML) INFIL ONE (12:18)
[2023-02-12] MEDS ORDERED: MIDAZOLAM HCL 1 MG/ML 2ML VIAL ONE (12:18)
[2023-02-12] MEDS ORDERED: PROPOFOL IV EMULSION 10 MG/ML 20 ML VIAL IV ONE (12:18)
[2023-02-12] MEDS ORDERED: fentaNYL citrate PF 100 MCG/2 ML VIAL ONE (12:18)
[2023-02-12] MEDS ORDERED: fentaNYL citrate PF 100 MCG/2 ML VIAL IV PRN (12:37)
[2023-02-12] MEDS ORDERED: ePHEDrine sulfate 50 MG/ML AMP IV PRN (12:37)
[2023-02-12] MEDS ORDERED: PROMETHAZINE HCL 12.5 MG in SODIUM CHLORIDE 0.9% 50 ML IV PRN (12:37)
[2023-02-12] MEDS ORDERED: LABETALOL HCL IV 5 MG/ML 20ML IV PRN (12:37)
[2023-02-12] MEDS ORDERED: ATROPINE SULFATE 0.1 MG/ML 10ML SYR IV PRN (12:37)
[2023-02-12] MEDS ORDERED: NALOXONE HCL 0.4 MG/1 ML VIAL/CARP IV PRN (12:37)
[2023-02-12] MEDS ORDERED: FLUMAZENIL 0.1 MG/1 ML 10 ML VIAL IV PRN (12:37)
[2023-02-12] MEDS ORDERED: CIPROFLOXACIN / D5W 400 MG/200 ML BAG IV ONE (12:43)
--- NOTE | 2023-02-12 13:12 | Operative Report ---
PG Post Operative Report Pre & Post Diagnosis Operation Date: 02/12/23 12:30 Pre-Op Diagnosis: Right distal ureteral calculus Post-Op Diagnosis: Right distal ureteral calculus I identified the patient and participated in the time-out.: Yes Procedure Operation Date: 02/12/23 12:30 Actual Procedures p Ureteral Stent Insertion- Right(Right) - Anthony Jett MD Surgeon Anthony Jett MD Paper Bag Inspector none Estimated Blood Loss 0 Findings Consistent with Post-Op Diagnosis Specimens none Description of Procedure The patient was identified in the preoperative holding area, appropriate informed consents were reviewed and completed and the patient was transferred to the operative suite. Upon arrival, appropriate antibiotics and anesthesia were administered and the patient was placed in dorsal lithotomy position and prepped and draped in sterile fashion. Begin the case to pass a 22 [place] cystoscope with 30 degree lens. Inspection revealed a healthy-appearing urethra. He has a small prostate but a slight intravesical median bar. Inspection of the bladder was unremarkable. His right ureteral orifices was identified in orthotopic position as was the left. I turned my attention to the right and cannulated it with a sensor wire and a 5 [place] open-ended catheter. There was slight resistance in the distal ureter consistent with the stone. The wire did bypassed the stone and moved to the kidney without difficulty. There was an immediate discharge of purulent old urine. I then proceeded to place a 6 [place] by 26 cm double-J stent seeing a good curl in the kidney as well as the bladder. There continued to be good drainage through and around the stent. Case was subsequently concluded and he was reversed of anesthesia and taken to the recovery room in stable condition. I attest to the content of the Intraoperative Record and any orders documented therein. Any exceptions are noted below.
--- NOTE | 2023-02-12 13:21 | Fluoroscopy Report ---
FL KUB CLINICAL HISTORY: RT STENT PLACEMENT, CYSTOright-sided cystourethrogram COMPARISON STUDY: CT 02/07/2023 FLUOROSCOPY TIME: 7.2 seconds FLUOROSCOPY IMAGES: 2 EXPOSURE DOSE: 2.87 mGy FINDINGS: A right-sided ureteroscope is noted. Cannulation of the right ureter with deployment of a r ight ureteral stent, proximal portion appearing to be within satisfactory positioning. The distal por tion of the stent was not imaged. IMPRESSION: Fluoroscopic assistance as above. ACT 112: Negative or not required by law. Electronically signed by: Luis Carvalho M.D. 02/12/2023 1:20 PM
[2023-02-12] MEDS ORDERED: oxyCODONE HCL IR 5 MG TAB (IMMEDIATE RELEASE) PO PRN (14:07)
[2023-02-12] MEDS ORDERED: GLUCOSE 40% GEL 15 GM TUBE PO PRN (14:15)
[2023-02-12] MEDS ORDERED: CARBOHYDRATES FOR HYPOGLYCEMIA PO PRN (14:15)
[2023-02-12] MEDS ORDERED: GLUCOSE 10 TAB/TUBE PO PRN (14:15)
[2023-02-12] MEDS ORDERED: GLUCAGON FOR INJ 1 MG VIAL IM PRN (14:15)
[2023-02-12] MEDS ORDERED: DEXTROSE 50% 50 ML SYRINGE IV PRN (14:15)
[2023-02-12] MEDS ORDERED: INSULIN ASPART 100 UNITS/ML VIAL SC PRN (14:30)
--- NOTE | 2023-02-12 15:01 | Anesthesiology Progress Note ---
Date of Service February 12, 2023 Anesthesia Post Procedure Vital Signs Vital Signs: Temp Pulse Pulse Pulse Resp BP BP 02/12/23 14:30 36.7 C 76 16 163/83 H 02/12/23 14:05 36.7 C 80 18 139/80 02/12/23 13:55 75 16 135/82 02/12/23 13:45 36.4 C L 73 15 138/80 02/12/23 13:35 78 12 133/80 02/12/23 13:25 74 16 135/82 02/12/23 13:19 36.9 C 70 16 132/80 02/12/23 12:17 37.2 C 108 H 16 177/68 H 02/12/23 07:18 36.7 C 79 15 145/77 H 02/12/23 02:35 36.8 C 80 18 165/89 H 02/12/23 01:30 67 20 164/93 H 02/12/23 00:30 69 12 170/101 H 02/12/23 00:00 72 18 02/11/23 23:30 72 18 176/94 H 02/11/23 22:30 68 18 173/97 H 02/11/23 22:00 65 02/11/23 21:00 80 16 158/92 H 02/11/23 22:00 66 18 179/96 H 02/11/23 19:09 36.5 C 101 H 20 122/70 Pulse Ox O2 Del Method O2 Flow Rate 02/12/23 14:30 97 Room Air 02/12/23 14:05 97 Room Air 02/12/23 13:55 96 Room Air 02/12/23 13:45 95 Room Air 02/12/23 13:35 95 Room Air 02/12/23 13:25 100 Oxymask 4 02/12/23 13:19 99 Oxymask 4 02/12/23 12:17 93 Room Air 02/12/23 07:18 95 Room Air 02/12/23 02:35 95 Room Air 02/12/23 01:30 90 02/12/23 00:30 96 02/12/23 00:00 94 02/11/23 23:30 95 02/11/23 22:30 94 02/11/23 22:00 02/11/23 21:00 95 Room Air 02/11/23 22:00 94 02/11/23 19:09 99 Room Air Pain Intensity Flank: Pain Intensity: 3 Transfer of Care Handoff Completed per policy Notes Mental Status: alert / awake / arousable Patient Amnestic to Procedure: Yes Nausea / Vomiting: adequately controlled Pain: adequately controlled Airway Patency, RR, SpO2: stable & adequate BP & HR: stable & adequate Hydration State: stable & adequate Anesthetic Complications: no major complications apparent
[2023-02-12] MEDS: INSULIN, Rapid-Acting PUMP SCH ×2 (17:34→20:41)
[2023-02-12] MEDS ORDERED: oxyBUTYnin chloride 5 MG TAB PO PRN (18:57)
[2023-02-12] MEDS ORDERED: PHENAZOPYRIDINE HCL 100 MG TAB PO PRN (18:57)
--- NOTE | 2023-02-12 19:00 | Hospitalist Progress Note ---
Date of Service February 12, 2023 Assessment & Plan (1) Hydronephrosis concurrent with and due to calculi of kidney and ureter: Plan: R sided 6mm stone s/p ureteral stent placement today by Dr Jett. post-op had low-grade fever, hyperglycemia, dizziness, hypertensive. encouraged him to stay another night; repeat u/a and urine cx with low threshold for abx for UTI. patient willing to stay overnight. pain meds. flomax. u/a and urine cx. pyridium prn. oxybutinin prn. restart IV fluids due to dizziness. (2) HUMBLE (acute kidney injury): Plan: 2nd #1 hydrate with IVF; repeat BMP am (3) Diabetes mellitus type I: Plan: cont insulin pump per his own parameters he has been diabetic since age 11 well versed in his control follow BSGs (4) Hypertension: Plan: flomax lisinopril - hold for now - resume tomorrow if HUMBLE resolved (5) Low grade fever: Plan: repeat u/a and urine cx Plan updated at bedside Admission and Anticipated Discharge Date Admission Date: February 12, 2023 Subjective saw patient after his stent placement BP was elevated to nearly 170 BSG was 270 he felt a little dizzy with standing up Temp was 37.6 about the time of my assessment had some mild hematuria with first void after stent placement some dysuria no abd pain no emesis did tolerate dinner at bedside Review of Systems Review of Systems: gen - no rigors cv - no chest pain pulm - no dyspnea or BRAY GI - no vomiting Physical Exam Physical Exam: gen - NAD mouth - MM slightly dry neck - no JVD heart - RRR, s1 s2, no murmur lungs - CTA b/l abd - soft NT ND BS+; no flank tenderness to palpation ext - no edema, pulses 2+ b/l Results & Data Results & Data Vital Signs (Past 12 Hours) Vital Signs Temp Pulse Pulse Resp BP Pulse Ox O2 Del Method 02/12/23 17:34 137/75 02/12/23 17:03 37.6 C H 89 16 146/74 H 94 Room Air 02/12/23 16:02 37 C 84 16 176/83 H 94 Room Air 02/12/23 15:01 36.7 C 74 15 161/92 H 95 Room Air 02/12/23 14:30 36.7 C 76 16 163/83 H 97 Room Air 02/12/23 14:05 36.7 C 80 18 139/80 97 Room Air 02/12/23 13:55 75 16 135/82 96 Room Air 02/12/23 13:45 36.4 C L 73 15 138/80 95 Room Air 02/12/23 13:35 78 12 133/80 95 Room Air 02/12/23 13:25 74 16 135/82 100 Oxymask 02/12/23 13:19 36.9 C 70 16 132/80 99 Oxymask 02/12/23 12:17 37.2 C 108 H 16 177/68 H 93 Room Air 02/12/23 07:18 36.7 C 79 15 145/77 H 95 Room Air O2 Flow Rate 02/12/23 17:34 02/12/23 17:03 02/12/23 16:02 02/12/23 15:01 02/12/23 14:30 02/12/23 14:05 02/12/23 13:55 02/12/23 13:45 02/12/23 13:35 02/12/23 13:25 4 02/12/23 13:19 4 02/12/23 12:17 02/12/23 07:18 Laboratory Results Laboratory Results 02/11/23 02/11/23 02/11/23 19:45 19:45 19:55 WBC 5.31 RBC 4.15 L Hgb 12.9 L Hct 36.9 L MCV 88.9 MCH 31.1 MCHC 35.0 RDW Std Deviation 39.8 RDW Coeff of Les 12.3 Plt Count 176 MPV 13.0 H Immature Gran % (Auto) 0.2 Neut % (Auto) 61.8 Lymph % (Auto) 22.0 Butler % (Auto) 13.7 Eos % (Auto) 1.7 Baso % (Auto) 0.6 Neut # (Auto) 3.28 Lymph # (Auto) 1.17 L Butler # (Auto) 0.73 H Eos # (Auto) 0.09 Baso # (Auto) 0.03 Immature Gran # (Auto) 0.01 Sodium 134 L Potassium 4.0 Chloride 99 Carbon Dioxide 24 Anion Gap 11 BUN 16 Creatinine 1.67 H Est Cr Clr Drug Dosing 70.6 Est GFR ( Amer) 57.6 Est GFR (Non-Af Amer) 49.7 BUN/Creatinine Ratio 9.6 L Glucose 225 H POC Glucose Calcium 9.6 Magnesium Total Bilirubin 1.0 AST 14 ALT 8 Alkaline Phosphatase 79 Total Protein 6.8 Albumin 4.1 Globulin 2.7 Albumin/Globulin Ratio 1.5 Lipase 3 L Urine Color Dark Yellow Urine Appearance Clear Urine pH 6.5 Ur Specific [place] 1.021 Urine Protein Negative Urine Glucose (UA) Negative Urine Ketones 2+ H Urine Blood Negative Urine Nitrite Negative Urine Bilirubin Negative Urine Urobilinogen Negative Ur Leukocyte Esterase Negative Urine WBC (Auto) Urine RBC (Auto) U Hyaline Cast (Auto) U Epithel Cells (Auto) Urine Bacteria (Auto) Ur Renal Epithelial Cell 02/12/23 02/12/23 02/12/23 05:39 05:39 13:32 WBC 4.38 L RBC 4.04 L Hgb 12.6 L Hct 36.0 L MCV 89.1 MCH 31.2 MCHC 35.0 RDW Std Deviation 40.7 RDW Coeff of Les 12.4 Plt Count 178 MPV 12.9 H Immature Gran % (Auto) 0.2 Neut % (Auto) 50.4 Lymph % (Auto) 31.3 Butler % (Auto) 15.3 Eos % (Auto) 2.1 Baso % (Auto) 0.7 Neut # (Auto) 2.21 Lymph # (Auto) 1.37 Butler # (Auto) 0.67 H Eos # (Auto) 0.09 Baso # (Auto) 0.03 Immature Gran # (Auto) 0.01 Sodium 140 Potassium 3.9 Chloride 105 Carbon Dioxide 27 Anion Gap 8 BUN 15 Creatinine 1.49 H Est Cr Clr Drug Dosing 79.0 Est GFR ( Amer) 66.1 Est GFR (Non-Af Amer) 57.1 BUN/Creatinine Ratio 10.1 Glucose 91 POC Glucose 155 H Calcium 9.1 Magnesium 1.7 Total Bilirubin AST ALT Alkaline Phosphatase Total Protein Albumin Globulin Albumin/Globulin Ratio Lipase Urine Color Urine Appearance Urine pH Ur Specific [place] Urine Protein Urine Glucose (UA) Urine Ketones Urine Blood Urine Nitrite Urine Bilirubin Urine Urobilinogen Ur Leukocyte Esterase Urine WBC (Auto) Urine RBC (Auto) U Hyaline Cast (Auto) U Epithel Cells (Auto) Urine Bacteria (Auto) Ur Renal Epithelial Cell PG Care Time/CCT Total # of Minutes Spent Total Time Spent with Patient: Total time spent is greater than 50% in coordination of care (as documented) at patient's floor/unit and/or counseling patient: Coding Level of Care Code 19663 SUB INP/OBS CARE 2/35MIN Diagnoses Hydronephrosis concurrent with and due to calculi of kidney and ureter N13.2 HUMBLE (acute kidney injury) N17.9 Diabetes mellitus type I E10.9 Hypertension I10 Low grade fever R50.9
[2023-02-12] MEDS ORDERED: ASPIRIN 81 MG ECTAB PO SCH (21:00)
[2023-02-12 21:33] LABS: Appearance Urine Cloudy (Clear); Bacteria Urine Automated Negative (Negative); Blood Urine 3+ (Negative); Color Urine Red; Epithelial Cell Urine Auto >30 /lpf (0-5); Glucose Urine UA 2+ (Negative); Ketones Urine Negative (Negative); Leukocyte Esterase Urine 1+ (Negative); Nitrite Urine Positive (Negative); Protein Urine 3+ (Negative); RBC Urine Automated >30 /hpf (0-4); Specific Gravity Urine 1.011 (1.000-1.030); Urobilinogen Urine Negative (Negative); pH Urine 6.5 (4.5-7.5)
[2023-02-12 21:34] LABS: Bilirubin Urine 1+ (Negative)
[2023-02-12 21:43] LABS: Renal Epithelial Cells Urine 0-5 /lpf (0-5)
[2023-02-13] MEDS: SODIUM CHLORIDE 0.9% 1000ML 1,000 ML IV SCH (04:30)
[2023-02-13] MEDS: TAMSULOSIN HCL 0.4 MG CAP PO SCH (07:18)
[2023-02-13] MEDS ORDERED: cefTRIAXone SODIUM 2,000 MG in DEXTROSE 5% 50 ML IV SCH (07:30)
[2023-02-13 07:53] LABS: Hematocrit (blood only) 38.4 % (42.0-52.0); Hemoglobin 13.2 g/dl (14.0-18.0); Mean Corpuscular Hgb Conc 34.4 g/dL (32.0-36.0); Mean Corpuscular Volume 90.1 fL (80.0-100.0); Mean Platelet Volume 12.7 fL (9.4-12.4); Platelet Count 173 K/uL (130-400); RDW Coefficient of Variation 12.6 % (11.5-14.5); RDW Standard Deviation 41.2 fL (36.4-46.3); Red Blood Count 4.26 M/uL (4.70-6.10); White Blood Count 4.36 K/ul (4.8-10.8)
[2023-02-13 08:05] LABS: Calcium 9.2 mg/dl (8.6-10.3); Creatinine Clr Calc Pharmacy 108.9 ml/min; Est GFR (African American) 97.6 ml/min; Est GFR (Non-African American) 84.2 ml/min; Potassium 4.2 mmol/L (3.5-5.1)
--- NOTE | 2023-02-13 08:31 | Urology Progress Note ---
Date of Service February 13, 2023 Assessment & Plan (1) Hydronephrosis concurrent with and due to calculi of kidney and ureter: Plan Postop day #1 status post right ureteral stent placement. Overall feeling well, tolerating the ureteral stent with minimal bother. Afebrile, BP has been elevated. Labs reviewed-WBC 4.36, hemoglobin 13.2, creatinine 1.08. Urine culture pending, on IV ceftriaxone. Continue antibiotics and tailor as culture data becomes available. Okay to d/c from perspective when medically stable. Recommend d/c with course of PO antibiotics, Tamsulosin, prn Pyridium and prn pain medication for stent management. Plan to follow-up as scheduled with our service this week to discuss definitive stone management Expected clinical course reviewed, all questions answered Urology will sign-off. Please contact us with any further questions, concerns, or changes in patient status. Admission and Anticipated Discharge Date Admission Date: February 12, 2023 Subjective Patient examined at bedside this AM. Awake, resting in bed on arrival. No acute distress. Overall feeling much better. Tolerating the stent with minimal bother. No reported pain at present. Denies fevers, chills, nausea, vomiting. Voiding without issue. Denies hematuria and dysuria. BP has been elevated. Pt reports he typically takes lisinopril but hasn't for a few days. Primary team notified per nursing note. Review of Systems Constitutional: as per Subjective / HPI Gastrointestinal: as per Subjective / HPI Genitourinary: + as per Subjective / HPI Physical Exam Constitutional: well developed and well nourished; no acute distress Respiratory: normal respiratory effort; no respiratory distress and no labored breathing Skin: No visible rashes or lesions to exposed skin areas Neurologic: moves all extremities and awake Psychiatric: A+Ox3, euthymic affect Results & Data Vital Signs (Past 12 Hours) Vital Signs Temp Pulse Resp BP BP Pulse Ox O2 Del Method 02/13/23 06:56 36.7 C 69 16 170/89 H 181/100 H 96 Room Air 02/13/23 04:34 36.8 C 71 18 154/80 H 96 Room Air 02/13/23 00:41 36.8 C 69 16 136/85 96 Room Air 02/12/23 21:30 Room Air 02/12/23 20:48 37.3 C 83 18 127/82 96 Room Air PG Care Time/CCT Total # of Minutes Spent Total Time Spent with Patient: Total time spent is greater than 50% in coordination of care (as documented) at patient's floor/unit and/or counseling patient: Coding Level of Care Code 37049 SUB INP/OBS CARE 2/35MIN Diagnoses Hydronephrosis concurrent with and due to calculi of kidney and ureter N13.2
[2023-02-13] MEDS ORDERED: lisinopril 20 MG TAB PO STA (08:34)
[2023-02-13] MEDS: INSULIN, Rapid-Acting PUMP SCH (08:36)
[2023-02-13] MEDS ORDERED: NON-FORMULARY MEDICATION (Insulin Lispro [Humalog U-100 Insulin] 100 unit/mL solution) continuous IV infusion SCH (09:00)
--- NOTE | 2023-02-13 12:11 | Discharge Summary ---
Date of Service February 13, 2023 Admission HPI Per Admitting Provider 42 yo male with PMHx HTN and DM1 presents with R flank pain. Discharged from [facility] a few days ago for the same complaint. Tried to manage kidney stone pain at home with trial of passage but pain got even worse from initial presentation. He was scheduled to f/u with urology as an outpatient next week. Pain located at low R back and wraps around to groin. Associated nausea and chills. Denies fever, headache, sob, chest pain, abd pain, vomiting, diarrhea, dysuria, hematuria. He has had 2-3 kidney stones in the past size unknown but he has been able to pass all on his own without intervention. Discharge Exam gen - NAD mouth - MM slightly dry neck - no JVD heart - RRR, s1 s2, no murmur lungs - CTA b/l abd - soft NT ND BS+; no flank tenderness to palpation ext - no edema, pulses 2+ b/l Discharge Data Allergies Allergy/AdvReac Type Severity Reaction Status Date / Time No Known Allergies Allergy Verified 02/09/23 09:51 Consultations 02/11/23 22:15 ED Decision to Admit Stat 02/12/23 00:51 Consult Urology Routine Procedures Performed Operation Date: 02/12/23 12:30 Actual Procedures p Ureteral Stent Insertion- Right(Right) - Anthony Jett MD Ordered Studies 02/11/23 19:58 US renal/blad retro comp Stat 02/12/23 FL KUB Routine Hospital Course (1) Hydronephrosis concurrent with and due to calculi of kidney and ureter: R sided 6mm stone s/p ureteral stent placement today by Dr Jett. post-op had low-grade fever, hyperglycemia, dizziness, hypertensive. encouraged him to stay another night; repeat u/a and urine cx with low threshold for abx for UTI. patient willing to stay overnight. pain meds. flomax. u/a and urine cx. pyridium prn. oxybutinin prn. restart IV fluids due to dizziness. (2) HUMBLE (acute kidney injury): 2nd #1 hydrate with IVF; repeat BMP am (3) Diabetes mellitus type I: cont insulin pump per his own parameters he has been diabetic since age 11 well versed in his control follow BSGs (4) Hypertension: flomax lisinopril - hold for now - resume tomorrow if HUMBLE resolved (5) Low grade fever: repeat u/a and urine cx Plan updated at bedside Discharge Plan Discharge Items Patient Disposition: Home - Self-Care Reason For Visit: KIDNEY STONE Discharge Diagnosis: 1. right sided kidney stone with placement of ureteral stent 2. type 1 diabetes 3. hypertension 4. concern for urinary tract infection Activity: As commented below Activity Comment: light activities only; try to avoid heavy exertional activities Lifting: No more than 10 pounds Exercise/Sports: Wait until after follow-up appointment Driving/Machine Use: NO DRIVING if using narcotic pain killer medications Non-emergency contact: Primary Care Provider and Urologist Call non-emergency contact if: you have any medication questions, your symptoms worsen, your pain is not controlled, your pain is worsening, your pain is concerning for you and you have a fever Follow-up/Referrals: Olivia Connor CRNP [Primary Care Provider] - Ros Bennett CRNP [Nurse Practitioner] - 02/15/23 (keep previously scheduled appointment with urology) Diet: Carb Count or DM1 Addtl Attending Provider Instructions: Mr Germain, Tom were hospitalized for a 6mm right-sided kidney stone that had traveled into the right ureter. You were seen by [facility] who offered to place a ureteral stent to relieve the pain and blockage caused by the stone. Dr Anthony Jett performed this procedure on 02/12/23. After your procedure you had a low-grade fever. We watched you overnight and started antibiotics for possible urinary tract infection. Recommendations - 1. for possible urinary tract infection - cephalexin 500mg twice daily x 6 days, first dose tomorrow AM. 2. for pain may use oxycodone 5mg every 6 hours as needed. This is a narcotic pain killer medication. Do not drive a car if you are taking this medication. Do not drink alcohol while taking this medication. This medication can also ca use constipation as well. 3. for urinary pain/burning - phenazopyridine 100mg every 8 hours as needed. This medication will make your urine & tears an orange color. 4. for bladder pain/spasms - oxybutinin 5mg every 12 hours as needed. This medication can cause dry mouth and dry eyes. 5. continue your tamsulosin as previous. 6. for constipation you can take [id number] miralax and/or senokot, if needed. 7. you may have some minor bleeding in the urine from time to time. This is not unusual with the stent. If you have large amounts of blood or clots, however, please call urology about this right away. 8. many people have stent pain. You may take tylenol, oxycodone, etc as needed for the discomforts. 9. see urology on Monday as scheduled. 10. stay well-hydrated with water and other sugar-free beverages. Return to [facility] if - * you have fever over 100 degrees * you have uncontrolled pain despite the above medications * you have severe vomiting * you have severe diarrhea * you have large amounts of blood in the urine * any other concerns It was our pleasure to care for you! -Dr Forde Pending Studies at Discharge: Yes Studies:: urine culture Stand-Alone Forms: My [facility], Smoking Cessation Medications and DC Order Prescriptions: New phenazopyridine [Pyridium] 100 mg Tablet 100 mg PO TID PRN (Reason: urinary pain/burning) Qty: 10 0RF oxybutynin chloride 5 mg Tablet 5 mg PO BID PRN (Reason: bladder spasms or bladder pain) Qty: 10 0RF cephalexin 500 mg capsule 500 mg PO BID 6 Days Qty: 12 0RF Rx Instructions: first dose AM of 02/14/23. lisinopril 40 mg tablet 40 mg PO DAILY Qty: 1 0RF Continued insulin lispro [Humalog U-100 Insulin] 100 unit/mL solution 0 unit continuous IV infusion DAILY Rx Instructions: UP TO 100 UNITS DAILY VIA CONTINUOUS INFUSION PUMP latanoprost 0.005 % drops 1 drp ophthalmic (eye) UD tamsulosin 0.4 mg Capsule 0.4 mg PO QAM Qty: 15 0RF acetaminophen 325 mg capsule 325 mg PO QID 14 Days Qty: 56 0RF Changed oxycodone 5 mg tablet 5 mg PO Q6H PRN (Reason: pain) Qty: 10 0RF Held aspirin 81 mg Tablet,Delayed Release (Dr/Ec) 81 mg PO QPM Hold Instructions: hold unless urology states it is ok to take ketorolac 10 mg tablet 10 mg PO TID PRN (Reason: Pain) Hold Instructions: hold unless urology states it is ok to take Rx Instructions: TAKE THIS MED WITH FOOD Discharge Orders: Discharge Order (Routine); Ordered 02/13/23 Ordered By: Charles Carvalho/Other Patient Handouts: Having a Ureteral Stent, Understanding Kidney Stones, Preventing Kidney Stones Admission Data Admit Date/Time: 02/12/23 00:06 Attending Provider: Charles Forde Admit Provider: Doni Casas Primary Care Provider: Olivia Connor Other Providers: Chi Munson ; Anthony Jett Other Interventions: Discharge Summary Assessment (RN) Last Done: 02/12/23 17:40 Coding Diagnoses Hydronephrosis concurrent with and due to calculi of kidney and ureter N13.2 HUMBLE (acute kidney injury) N17.9 Diabetes mellitus type I E10.9 Hypertension I10 Low grade fever R50.9
== END 2023-02-13 12:46 | disposition home or self-care (01) | DRG 661 ==
LOC: ED 19:01 → 3N 02-12 00:06 → SUATTDRO 02-12 00:06 → 3N 02-12 01:51
DX: Z87.442 Personal history of urinary calculi; Z79.4 Long term (current) use of insulin; Z79.899 Other long term (current) drug therapy; E10.319 Type 1 diabetes mellitus with unspecified diabetic retinopathy without macular edema; N17.9 Acute kidney failure, unspecified; I10 Essential (primary) hypertension; E10.65 Type 1 diabetes mellitus with hyperglycemia; Z79.82 Long term (current) use of aspirin; Z96.41 Presence of insulin pump (external) (internal); N13.6 Pyonephrosis